=== PATIENT | female | born 1950 | race Caucasian/White ===

== ENCOUNTER 2020-08-04 00:49 | Outpatient (CLI) | payer MEDICARE, OTHER, SELFPAY ==
[2020-08-04 18:04] LABS: SARS-CoV-2 RNA PCR Negative
== END 2020-08-04 00:50 | disposition home or self-care (01) ==
LOC: ANHCOVIDDT 00:49
PROVIDERS: PCP Internal Medicine; Visit Provider Internal Medicine Gastroenterology
DX: Z01.812 Encounter for preprocedural laboratory examination (principal); Z20.828 Contact with and (suspected) exposure to other viral communicable diseases
CPT/HCPCS: 87635; C9803; U0003

== ENCOUNTER 2020-08-07 00:22 | Day surgery (SDC) | payer MEDICARE, OTHER, SELFPAY ==
[2020-08-03 15:53] VITALS: BMI 25.8
[2020-08-07 08:29] VITALS: BP 145/81; PULSE 79; RESP 14; TEMP 36; O2SAT 97; BMI 29.0
[2020-08-07 08:31] LABS: Glucose Point of Care 102 (65-105)
[2020-08-07] MEDS: LACTATED RINGERS 1,000 ML 150 ML IV CONT (08:32)
--- NOTE | 2020-08-07 08:57 | WPDANESEPPF ---
Anes - Initial Pre Proc Eval Procedure: Operation Date: 08/07/20 09:30 Proposed Procedures p Screening Colonoscopy - Aung Weldon MD Date/Time: 08/07/20 08:57 Surgeon: Aung Weldon MD Pre Op Diagnosis: Hx Colon Polyps Patient Data Age: 70 Gender: F Height: 5 ft 2 in Weight: 72.1 kg Last Vital Signs Temp 96.8 F L 08/07/20 08:29 Pulse 79 08/07/20 08:29 Resp 14 08/07/20 08:29 BP 145/81 H 08/07/20 08:29 Pulse Ox 97 08/07/20 08:29 Allergies Allergy/AdvReac Type Severity Reaction Status Date / Time fentanyl Allergy Severe Swelling Verified 08/07/20 08:19 of Lip/Tongue/Throat Sulfa (Sulfonamide Allergy Severe Hives Verified 08/07/20 08:19 Antibiotics) sulfamethizole Allergy Severe Hives Verified 08/07/20 08:19 trimethoprim Allergy Severe Hives Verified 08/07/20 08:19 adhesive Allergy Intermediate Rash Verified 08/07/20 08:19 morphine Allergy Unknown Rash Verified 08/07/20 08:19 Home Medications Medication Instructions Recorded Confirmed Type aspirin [Adult Low Dose Aspirin] 81 mg PO DAILY 08/03/20 08/07/20 History atorvastatin 20 mg PO DAILY 08/03/20 08/07/20 History calcium polycarbophil [FiberCon] 625 mg PO BID 08/03/20 08/07/20 History citalopram 20 mg PO DAILY 08/03/20 08/07/20 History donepezil 10 mg PO DAILY 08/03/20 08/07/20 History estradiol 0.5 mg PO DAILY 08/03/20 08/07/20 History lisinopril 10 mg PO DAILY 08/03/20 08/07/20 History magnesium 250 mg PO DAILY 08/03/20 08/07/20 History metformin 500 mg PO DAILY 08/03/20 08/07/20 History aabijovibufq-itx-loqf-FA-vit K 1 tablet PO DAILY 08/03/20 08/07/20 History [Adults Multivitamin] omega 6-qda-lfx-fish oil [Fish Oil] 1 cap PO BID 08/03/20 08/07/20 History trazodone 50 mg PO HS 08/03/20 08/07/20 History vitamin B complex [Super B Complex] 1 cap PO DAILY 08/03/20 08/07/20 History Laboratory Tests 08/07/20 08:27 POC Capillary Glucose 102 mg/dl mg/dl (65-105) Patient hx anesthesia problems: none Family hx anesthesia problems: none PMFSH Past Medical History Medical History (Updated 08/07/20 @ 08:55 by Toni Long MD) Arthritis Dementia Diabetes Hyperlipidemia Hypertension Family History Family History (Updated 09/17/15 @ 13:01 by DOCTOR UNKNOWN) Father Family history of Alzheimer's disease Mother Family history of coronary artery disease Other Carcinoma of colon Family history of obesity Social History Social History Smoking packs per day: 1 Smoking cigarettes per day: 20.0 Years smoked: 16 Smoking pack-years: 16.00 Smoking status: Former smoker Tobacco type: cigarettes Second hand tobacco smoke exposure: No Smoking end date: 10/12/89 Alcohol intake: current Drinks per week: 3 Alcohol use details: WINE Substance use: never Substance use type: does not use Living arrangements: with family Spiritual care concerns: No Anes - Eval Final PreProcedure Day of Procedure 08/07/20 08:57 Patient weight: normal Heart: regular rate and rhythm Lungs: clear to auscultation Airway: Mallampati scale class II Neurological: alert and oriented Last oral intake: >/= 8 hours ASA classification: III Emergent: no Anesthetic plan: proceed Anesthesia type and monitoring: general GIVS and standard monitoring Informed Consent: The patient's anesthetic plan and its attendant risks and benefits were discussed with the patient/family/POA. Questions were solicited and answers provided to the satisfaction of the patient/family/POA.
--- NOTE | 2020-08-07 09:24 | PM.HPGS ---
History of Present Illness History of Present Illness Consent: Risks, benefits, and alternatives have been discussed and questions answered. Patient agrees to proceed with procedure. Chief complaint: Hx Colon Polyps Narrative: Lynda Valdez is a 70 year old female With a history of colon polyps here for colon cancer screening Review of Systems Review of Systems: All systems reviewed & are unremarkable except as noted in HPI and below PMFSH Past Medical History Medical History Arthritis Dementia Diabetes Hyperlipidemia Hypertension Family History Family History (Updated 09/17/15 @ 13:01 by DOCTOR UNKNOWN) Father Family history of Alzheimer's disease Mother Family history of coronary artery disease Other Carcinoma of colon Family history of obesity Social History Social History Smoking packs per day: 1 Smoking cigarettes per day: 20.0 Years smoked: 16 Smoking pack-years: 16.00 Smoking status: Former smoker Tobacco type: cigarettes Second hand tobacco smoke exposure: No Smoking end date: 10/12/89 Alcohol intake: current Drinks per week: 3 Alcohol use details: WINE Substance use: never Substance use type: does not use Living arrangements: with family Spiritual care concerns: No Meds Home Medications and Allergies Home Medications Medication Instructions Recorded Confirmed Type aspirin [Adult Low Dose Aspirin] 81 mg PO DAILY 08/03/20 08/07/20 History atorvastatin 20 mg PO DAILY 08/03/20 08/07/20 History calcium polycarbophil [FiberCon] 625 mg PO BID 08/03/20 08/07/20 History citalopram 20 mg PO DAILY 08/03/20 08/07/20 History donepezil 10 mg PO DAILY 08/03/20 08/07/20 History estradiol 0.5 mg PO DAILY 08/03/20 08/07/20 History lisinopril 10 mg PO DAILY 08/03/20 08/07/20 History magnesium 250 mg PO DAILY 08/03/20 08/07/20 History metformin 500 mg PO DAILY 08/03/20 08/07/20 History snvqxkuqpkat-qri-tzal-FA-vit K 1 tablet PO DAILY 08/03/20 08/07/20 History [Adults Multivitamin] omega 5-fvj-ipq-fish oil [Fish Oil] 1 cap PO BID 08/03/20 08/07/20 History trazodone 50 mg PO HS 08/03/20 08/07/20 History vitamin B complex [Super B Complex] 1 cap PO DAILY 08/03/20 08/07/20 History Allergies Allergy/AdvReac Type Severity Reaction Status Date / Time fentanyl Allergy Severe Swelling Verified 08/07/20 08:19 of Lip/Tongue/Throat Sulfa (Sulfonamide Allergy Severe Hives Verified 08/07/20 08:19 Antibiotics) sulfamethizole Allergy Severe Hives Verified 08/07/20 08:19 trimethoprim Allergy Severe Hives Verified 08/07/20 08:19 adhesive Allergy Intermediate Rash Verified 08/07/20 08:19 morphine Allergy Unknown Rash Verified 08/07/20 08:19 Vital Signs Vital Signs - 24 hr 08/07/20 08:29 Temperature 36.0 C L Pulse Rate 79 Respiratory Rate 14 Blood Pressure 145/81 H Pulse Oximetry 97 Exam Resp: Auscultation: clear to auscultation bilaterally Cardio: Rate: regular rate Rhythm: regular rhythm GI: GI Palp: Yes Soft to palpation and No Tenderness to palpation present (GI) Assessment and Plan Assessment and plan (1) Colon cancer screening: Code(s): Z12.11 - Encounter for screening for malignant neoplasm of colon Status: Acute Assessment and Plan: Colonoscopy with possible biopsy or polypectomy or cautery or injection of substances.
[2020-08-07 09:54] VITALS: BP 125/68; PULSE 64; RESP 21; O2SAT 99
[2020-08-07 10:04] VITALS: BP 131/67; PULSE 60; RESP 21; O2SAT 99
[2020-08-07 10:14] VITALS: BP 125/102; PULSE 67; RESP 20; O2SAT 100
== END 2020-08-07 10:35 | disposition home or self-care (01) ==
PROVIDERS: PCP Internal Medicine; Visit Provider Internal Medicine Gastroenterology
PROC: 0DJD8ZZ Inspection of Lower Intestinal Tract, Via Natural or Artificial Opening Endoscopic (ICD-10-PCS; CPT 45378; principal; 2020-08-07 09:30)
DX: Z12.11 Encounter for screening for malignant neoplasm of colon (principal); Z86.010 Personal history of colon polyps; I10 Essential (primary) hypertension; E78.5 Hyperlipidemia, unspecified; E11.9 Type 2 diabetes mellitus without complications; F03.90 Unspecified dementia, unspecified severity, without behavioral disturbance, psychotic disturbance, mood disturbance, and anxiety; Z79.84 Long term (current) use of oral hypoglycemic drugs; Z79.82 Long term (current) use of aspirin; Z87.891 Personal history of nicotine dependence
CPT/HCPCS: G0105; J2704; J7120

== ENCOUNTER 2020-11-15 09:46 | Outpatient (CLI) | payer MEDICARE, SELFPAY ==
--- NOTE | ~2020-11-15 | MM_ITS ---
EXAMINATION: MM screening samara BI w julio HISTORY: Screening mammogram TECHNIQUE: Craniocaudal and mediolateral oblique 3-D tomosynthesis images were obtained and synthetic 2-D images were generated. CAD analysis was submitted and interpreted. COMPARISON: 11/01/2019, 09/29/2019, 09/23/2017 BREAST PARENCHYMAL COMPOSITION: There are scattered areas of fibroglandular density. FINDINGS: Scattered benign-appearing calcifications are present. There is no evidence of suspicious m ass, calcification, or architectural distortion to suggest malignancy in either breast. There has bee n no suspicious interval change. IMPRESSION: 1. No mammographic evidence of malignancy. 2. Recommend routine screening mammography in one year. BI-RADS Category 2: Benign finding(s). Reviewed, dictated and finalized at location A. ERCIAL [employer] OFFICER
== END 2020-11-15 09:47 | disposition home or self-care (01) ==
PROVIDERS: PCP Internal Medicine; Visit Provider Obstetrics & Gynecology Gynecology
DX: Z12.31 Encounter for screening mammogram for malignant neoplasm of breast (principal)
CPT/HCPCS: 77063; 77067

== ENCOUNTER 2020-12-05 08:40 | Outpatient (CLI) | payer MEDICARE, SELFPAY ==
--- NOTE | 2020-12-05 12:00 | NEURO_ITS ---
Impression: # Complains of hand numbness. History of carpal tunnel release on the left side. # Right moderate Carpal Tunnel Syndrome. # No ulnar neuropathy. # Normal needle/EMG exam except right APB mildly neurogenic. Nerve Conduction Studies Anti Sensory Summary Table Stim Site NR Peak (ms) P-T Amp (?V) Site1 Site2 Delta-P (ms) Dist (cm) Colin (m/s) Left Median Anti Sensory (2-3nd Digit) Wrist 3.1 57.3 Wrist 2-3nd Digit 3.1 14.0 45 Wrist 3.4 49.5 Wrist 2-3nd Digit 3.1 14.0 45 Right Median Anti Sensory (2-3nd Digit) Wrist 6.6 19.9 Wrist 2-3nd Digit 6.6 14.0 21 Wrist 5.2 9.4 Wrist 2-3nd Digit 6.6 14.0 21 Left Radial Anti Sensory (Base 1st Digit) Wrist 2.2 21.8 Wrist Base 1st Digit 2.2 0.0 Right Radial Anti Sensory (Base 1st Digit) Wrist 2.6 15.0 Wrist Base 1st Digit 2.6 0.0 Left Ulnar Anti Sensory (5th Digit) Wrist 2.8 33.7 Wrist 5th Digit 2.8 14.0 50 Right Ulnar Anti Sensory (5th Digit) Wrist 2.4 47.8 Wrist 5th Digit 2.4 14.0 58 Motor Summary Table Stim Site NR Onset (ms) O-P Amp (mV) Site1 Site2 Delta-0 (ms) Dist (cm) Colin (m/s) Left Median Motor (Abd Poll Brev) Wrist 3.3 2.4 Elbow Wrist 5.1 29.0 57 Elbow 8.4 1.1 Right Median Motor (Abd Poll Brev) Wrist 4.8 1.3 Elbow Wrist 4.2 24.0 57 Elbow 9.0 0.8 Left Ulnar Motor (Abd Dig Minimi) Wrist 2.8 7.2 A Elbow Wrist 4.9 28.0 57 A Elbow 7.7 5.3 Right Ulnar Motor (Abd Dig Minimi) Wrist 2.5 5.5 A Elbow Wrist 4.6 27.0 59 A Elbow 7.1 4.7 F Wave Studies NR F-Lat (ms) L-R F-Lat (ms) Left Median (Mrkrs) (Abd Poll Brev) 28.77 1.17 Right Median (Mrkrs) (Abd Poll Brev) 29.94 1.17 Left Ulnar (Mrkrs) (Abd Dig Min) 27.13 1.47 Right Ulnar (Mrkrs) (Abd Dig Min) 28.59 1.47 EMG Side Muscle Nerve Root Ins Act Fibs Amp Dur Recrt Comment Right 1stDorInt Ulnar C8-T1 Nml Nml Nml Nml Nml Right Ext Indicis Radial (Post Int) C7-8 Nml Nml Nml Nml Nml Right Ext Digitorum Radial (Post Int) C7-8 Nml Nml Nml Nml Nml Right BrachioRad Radial C5-6 Nml Nml Nml Nml Nml Right PronatorTeres Median C6-7 Nml Nml Nml Nml Nml Right Abd Poll Brev Median C8-T1 Nml Nml Nml >12ms Reduced Left 1stDorInt Ulnar C8-T1 Nml Nml Nml Nml Nml Left Ext Indicis Radial (Post Int) C7-8 Nml Nml Nml Nml Nml Left Ext Digitorum Radial (Post Int) C7-8 Nml Nml Nml Nml Nml Left BrachioRad Radial C5-6 Nml Nml Nml Nml Nml Left PronatorTeres Median C6-7 Nml Nml Nml Nml Nml Left Abd Poll Brev Median C8-T1 Nml Nml Nml Nml Nml Right ABD Dig Min Ulnar C8-T1 Nml Nml Nml Nml Nml Left ABD Dig Min Ulnar C8-T1 Nml Nml Nml Nml Nml MTDD
== END 2020-12-05 08:41 | disposition home or self-care (01) ==
PROVIDERS: PCP Internal Medicine; Visit Provider Internal Medicine
DX: G62.9 Polyneuropathy, unspecified (principal); G56.01 Carpal tunnel syndrome, right upper limb
CPT/HCPCS: 95886; 95911

== ENCOUNTER 2021-02-12 11:00 | Outpatient (RCR) | payer MEDICARE, SELFPAY ==
--- NOTE | 2020-12-21 15:47 | OTOPEVAL ---
OCCUPATIONAL THERAPY INITIAL EVALUATION REPORT 12/21/2020 Thank you for referring Lynda Valdez to [facility].? The patient is scheduled to be seen for therapy? 1x/week for 6 weeks. Please review, sign, date and return this plan of care VALERI. I agree with and certify that the following plan of care is medically necessary. Referring Physician Date Referring Provider: Torrey Whiteside, *OT Outpatient Evaluation Start: 12/21/20 14:38 Therapy Assessment Status Assessment Status Assessment Status Evaluation Outpatient Past Medical History Neurological History Hx Dementia Yes Cardiovascular History Hx Hypercholesterolemia Yes Hx Hypertension Yes Respiratory History Hx Respiratory Disorders No Significant History Gastrointestinal History Hx Gastroesophageal Reflux Disease Yes: HISTORY Hx Polyps Yes Genitourinary History Hx Genitourinary Disorders No Significant History Musculoskeletal History Hx Arthritis Yes Hx Joint Replacement Yes: L-HIP R-HIP BEFORE 2013, Hx Spinal Surgery Yes: 2013 CERVICAL LAMINECTOMY Hematological History Hx Hematological Disorders No Significant History Endocrine History Hx Diabetes Yes HEENT History Hx Dental Problems Yes: UPPER DENTURES Integumentary History Hx Shingles Yes Reproductive History Hx Post Menopausal Yes Psychosocial History Hx Psychiatric Disorders No Significant History Pain History History of Any Previous or Ongoing No Significant History Instance of Pain Anesthesia History Hx Anesthesia Reactions No Significant History Other History Hx Implanted Device Yes: BILATERAL HIPS Evaluation Information Problem Diagnosis Right carpal tunnel syndrome, bilateral hand paresthesias Additional Evaluation Detail 12/05/20: EMG (+) right CTS. Subjective Information Patient reports feeling Query Text:As Reported By Patient/ needles in her fingertips of Family both hands all the time . She has had carpal tunnel release on the left in 2017, but she reports no change in her symptoms. She has had a history of cervical surgeries. Lynda and her report that imaging shows no nerve compression in the cervical spine. Prior Level of Function Activity Level (Last 3 Months) Occupation Retired Hand Dominance Right Activity of Daily Living Ability Independent Pain Assessment Timing of Pain Assessment Timing of Pain Assessment
--- NOTE | 2021-01-25 12:28 | OTOPEVAL ---
OCCUPATIONAL THERAPY RE-EVALUATION REPORT 01/25/21 Thank you for referring Lynda Valdez to [facility]. ? The patient is scheduled to be seen for continued occupational therapy? 1x/week for 4 additional weeks. Please review, sign, date and return this plan of care VALERI. I agree with and certify that the following plan of care is medically necessary. Referring Physician Date Referring Provider: Torrey Whiteside, *OT Outpatient Evaluation Start: 12/21/20 14:38 Evaluation Information Problem Diagnosis Right carpal tunnel syndrome, bilateral hand paresthesias Additional Evaluation Detail 12/05/20: EMG (+) right CTS Patient began wearing bilateral wrist cock up splints 12/28/20 and today is 4 weeks total of wear time. She has been completing median nerve glides/stretching and using heat/ice at home. Subjective Information Patient reports the numbness Query Text:As Reported By Patient/ is almost gone and that she Family no longer has needles in her fingertips all the time. She has been very compliant with splint wearing. States she continues to be guarded when it comes to picking up cups and mugs. Pain Assessment Timing of Pain Assessment Timing of Pain Assessment Re-assessment Self Report Self Report Pain Level 0 Pain Score Pain Score 0: Self Report Hand Insurance Rater/Pinch Strength Assessment Hand Left Insurance Rater Strength (lbs) 54.33 Hand Insurance Rater/Pinch Strength Comments Improved from 50.66 lbs. Right Insurance Rater Strength (lbs) 49 Hand Insurance Rater/Pinch Strength Comments Improved from 46.33 lbs. Sensation Assessment Location Left [place] Median Diminished, Light Touch 2 Point Discrimination Static Fair (6-10mm) 2 Point Discrimination Comments Stereognosis is intact bilaterally. Patient continues to measure within the 6-10 mm range. Right [place] Median Diminished, Light Touch 2 Point Discrimination Static Fair (6-10mm) 2 Point Discrimination Comments Patient continues to measure within the 6-10 mm range. OT Clinical Summary OT Clinical Summary Patient presents today for re- evaluation after wearing bilateral wrist cock up splints x4 weeks. Sensory testing shows no improvements
--- NOTE | 2021-02-12 11:47 | OTOPEVAL ---
OCCUPATIONAL THERAPY RE-EVALUATION AND D/C NOTE 02/12/21 Patient presents today for re-evaluation after 8 weeks of therapy for bilateral hand paresthesias. Subjectively, the patient reports reduced numbness and tingling in bilateral hands. Objectively, the the monofilament test has remained unchanged and the 2-pt discrimination test improved, but she continues to test in the decreased sensation range. SWMF test shows patient testing in the 3.61 range (diminished light touch). Static 2-pt discrimination testing in the 6-10 mm range. Educated the patient on these test results and that she should return to night splint wearing, nerve glides, and use of heat/ice. She and her verbalize good understanding. Discharging from OT with patient independent with all materials. Thank you for referring Lynda Valdez to [facility].?Please review, sign, date and return this plan of care VALERI. I agree with and certify that the following plan of care is medically necessary. Referring Physician Date Referring Provider: Torrey Whiteside, *OT Outpatient Re-Evaluation Start: 12/21/20 14:38 Evaluation Information Problem Diagnosis Right carpal tunnel syndrome, bilateral hand paresthesias Additional Evaluation Detail 12/05/20: EMG (+) right CTS Patient began wearing bilateral wrist cock up splints 12/28/20 and today is 6 weeks total of wear time. She has been completing median nerve glides/stretching and using heat/ice at home. Subjective Information Patient reports the numbness Query Text:As Reported By Patient/ is almost gone and that she Family no longer has needles in her fingertips all the time. She has been very compliant with splint wearing. Pain Assessment Timing of Pain Assessment Timing of Pain Assessment Re-assessment Self Report Self Report Pain Level 0 Pain Score Pain Score 0: Self Report Special Tests-Upper Extremity Wrist Special Tests Tinnel's Carpal Negative Left,Negative Right Sensation Assessment Location Left [place] Median Diminished, Light Touch 2 Point Discrimination Static Fair (6-10mm) 2 Point Discrimination Comments Stereognosis is intact bilaterally. Patient continues to measure within the 6-10 mm range. At the start of care, she was testing at 9-10 mm. Today she was testing at 7mm. Right [place] Median Diminished, Light Touch 2 Point Discrimination Static Fair (6-10mm) 2 Point Discrimination Comments Patient continues to measure within the 6-10 mm
== END 2021-02-13 14:44 | disposition home or self-care (01) ==
LOC: ANHOT 11:00
PROVIDERS: PCP Internal Medicine; Visit Provider Internal Medicine
DX: G56.01 Carpal tunnel syndrome, right upper limb (principal); R20.2 Paresthesia of skin
CPT/HCPCS: 97018; 97035; 97110; 97140; 97166; L3906

== ENCOUNTER 2021-04-03 20:53 | Emergency (ER) | payer MEDICARE, SELFPAY ==
--- NOTE | ~2021-04-03 | XR_ITS ---
EXAMINATION: XR ankle RT min 3V DATE: 04/03/2021 21:08 INDICATION: Right ankle injury and pain. TECHNIQUE: 4 views of right ankle were obtained. COMPARISON: None. FINDINGS: Bone alignment is normal. There is a nondisplaced comminuted fracture of base of fifth meta tarsal. There is diffuse osteopenia. There is mild midfoot osteoarthritis. There is an enthesophyte a t plantar aspect of calcaneal tuberosity. IMPRESSION: 1. Nondisplaced comminuted fracture of base of fifth metatarsal. Reviewed, dictated and finalized at location A.
[2021-04-03 20:55] VITALS: BP 111/68; PULSE 74; RESP 16; TEMP 36.8; O2SAT 97
--- NOTE | 2021-04-03 21:41 | ED.LOWEXIN ---
HPI - Extremity Injury (Lower) General Chief Complaint: Extremity Injury, Lower Stated Complaint: rt ankle injury Time Seen by Provider: 04/03/21 21:36 Source: patient Mode of arrival: wheelchair Limitations: no limitations History of Present Illness HPI Narrative: Patient is a 71-year-old female complaining of right ankle pain after she rolled it while stepping on a curb prior to arrival. Patient states that her pain is a 9 out of 10, aching, nonradiating. Patient denies any other pain or injuries. Related Data Home Medications Medication Instructions Recorded Confirmed Adults Multivitamin 1 tablet PO DAILY 08/03/20 08/07/20 aspirin 81 mg PO DAILY 08/03/20 08/07/20 atorvastatin 20 mg PO DAILY 08/03/20 08/07/20 calcium polycarbophil [FiberCon] 625 mg PO BID 08/03/20 08/07/20 citalopram 20 mg PO DAILY 08/03/20 08/07/20 donepezil 10 mg PO DAILY 08/03/20 08/07/20 estradiol 0.5 mg PO DAILY 08/03/20 08/07/20 lisinopril 10 mg PO DAILY 08/03/20 08/07/20 magnesium 250 mg PO DAILY 08/03/20 08/07/20 metformin 500 mg PO DAILY 08/03/20 08/07/20 omega 1-jkg-mda-fish oil [Fish Oil] 1 cap PO BID 08/03/20 08/07/20 trazodone 50 mg PO HS 08/03/20 08/07/20 vitamin B complex 1 cap PO DAILY 08/03/20 08/07/20 Allergies Allergy/AdvReac Type Severity Reaction Status Date / Time fentanyl Allergy Severe Swelling Verified 08/07/20 08:19 of Lip/Tongue/Throat Sulfa (Sulfonamide Allergy Severe Hives Verified 08/07/20 08:19 Antibiotics) sulfamethizole Allergy Severe Hives Verified 08/07/20 08:19 trimethoprim Allergy Severe Hives Verified 08/07/20 08:19 adhesive Allergy Intermediate Rash Verified 08/07/20 08:19 morphine Allergy Unknown Rash Verified 08/07/20 08:19 Review of Systems Review of Systems: All systems reviewed & are unremarkable except as noted in HPI and below PMFSH Past Medical History Medical History Arthritis Dementia Diabetes Hyperlipidemia Hypertension Family History Family History Father Family history of Alzheimer's disease Mother Family history of coronary artery disease Other Carcinoma of colon Family history of obesity Social History Social History Smoking packs per day: 1 Smoking cigarettes per day: 20.0 Years smoked: 16 Smoking pack-years: 16.00 Smoking status: Former smoker Tobacco type: cigarettes Second hand tobacco smoke exposure: No Smoking end date: 10/12/89 Alcohol intake: current Drinks per week: 3 Substance use: never Substance use type: does not use Spiritual care concerns: No Exam Const: General: healthy appearing, no acute distress and alert Nutritional Appearance: well nourished HENMT: Head: normal to inspection Eyes: Conjunctivae: conjunctivae normal Neck: Neck: normal visual inspection Back/Spine/Pelvis: Other: Negative for vertebral tenderness negative for tenderness on palpation Skin: General skin exam: normal color Extrem: Other: Negative for any deformity. Right ankle swelling. Limited range of motion of right ankle and foot due to pain. Pain on palpation of the right ankle and foot. Neurovascular is intact bilateral lower extremities Course Vital Signs Vital signs: Vital Signs Temperature 36.8 C 04/03/21 20:55 Pulse Rate 74 04/03/21 20:55 Respiratory Rate 16 04/03/21 20:55 Blood Pressure 111/68 04/03/21 20:55 Pulse Oximetry 97 04/03/21 20:55 Temperature 36.8 C 04/03/21 20:55 Pulse Rate 74 04/03/21 20:55 Respiratory Rate 16 04/03/21 20:55 Blood Pressure 111/68 04/03/21 20:55 Pulse Oximetry 97 04/03/21 20:55 MDM - Extremity Injury (Lower) Differential Diagnosis Differential diagnosis: Likely ankle sprain and strain, fracture of toe, ankle fracture and other (Dislocation) Imaging Data Attestation: I personally revi
[2021-04-03] MEDS: ACETAMINOPHEN 325 MG TABLET 650 MG PO (22:24)
[2021-04-03] MEDS: TETANUS,DIPHTHERIA,AC PERTUSSIS ADULT (0.5 ML) BOOSTRIX IM (22:24)
== END 2021-04-03 22:28 | disposition home or self-care (01) ==
PROVIDERS: Emergency Provider Emergency Medicine; PCP Internal Medicine
DX: S92.354A Nondisplaced fracture of fifth metatarsal bone, right foot, initial encounter for closed fracture (principal); E11.9 Type 2 diabetes mellitus without complications; I10 Essential (primary) hypertension; E78.5 Hyperlipidemia, unspecified; F03.90 Unspecified dementia, unspecified severity, without behavioral disturbance, psychotic disturbance, mood disturbance, and anxiety; Z23 Encounter for immunization; Z87.891 Personal history of nicotine dependence; X50.0XXA Overexertion from strenuous movement or load, initial encounter
CPT/HCPCS: 73610; 90471; 90715; 99283; A9270

== ENCOUNTER 2021-06-20 11:00 | Outpatient (RCR) | payer MEDICARE, SELFPAY ==
--- NOTE | 2021-05-22 10:52 | PTOPEVAL ---
PHYSICAL THERAPY EVALUATION AND PLAN OF CARE Thank you for referring Lynda Valdez to [facility].? The patient is scheduled to be seen for therapy? 2x/week for 4-6 weeks. Please review, sign, date and return this plan of care VALERI. I agree with and certify that the following plan of care is medically necessary. Referring Physician Date Attending Provider: Piero Owens MD Evaluation Outpatient Past Medical History Neurological History Hx Dementia Yes Cardiovascular History Hx Hypercholesterolemia Yes Hx Hypertension Yes Musculoskeletal History Hx Arthritis Yes Hx Joint Replacement Yes: L-HIP R-HIP BEFORE 2013, Hx Spinal Surgery Yes: 2013 CERVICAL LAMINECTOMY Endocrine History Hx Diabetes Yes HEENT History Hx Dental Problems Yes: UPPER DENTURES Integumentary History Hx Shingles Yes Reproductive History Hx Post Menopausal Yes Other History Hx Implanted Device Yes: BILATERAL HIPS Evaluation Information Problem Diagnosis right 5th metatarsal fracture Onset March 26, 2021 Additional Evaluation Detail drop foot present since 2016 Subjective Information Angie is supposed to wear an Query Text:As Reported By Patient/ AFO, but she descided not to Family wear it and she rolled her ankle and fractured the 5th metatarsal, which is now healed, but today she is here today for improving gait pattern. Pain Assessment Timing of Pain Assessment Timing of Pain Assessment Assessment Self Report Self Report Pain Level 0 Pain Score Pain Score 0: Self Report Lower Extremity Range of Motion General Lower Extremity Range of Motion Gross Lower Extremity Range of Motion grossly WNL, unable to perform Comments right AROM dorisflexion and eversion Lower Extremity Muscle Strength Testing Hip Strength Right Hip Flexion Strength 5 Normal Hip Extension Strength 4- Good - Hip Abduction Strength 4 Good Knee Strength Right Knee Flexion Strength 4 Good Knee Extension Strength 5 Normal Ankle Strength Right Ankle Dorsiflexion Strength 0 Zero Ankle Plantarflexion Strength 3+ Fair + Ankle Eversion Strength 1 Trace Ankle Inversion Strength 3- Fair - Toe Strength Comments no toe strength Muscle Length Testing Muscle Length Testing Joel Test Shortened Muscles Short (R) Iliopsoas,Short (R) Rectus Femoris Gait Assessment Gait Assessment Ambulation Assistive Devices None Weight Bearing Status -
--- NOTE | 2021-06-20 11:33 | PTOPEVAL ---
PHYSICAL THERAPY DISCHARGE NOTE Thank you for referring Lynda Valdez to [facility].? Please review, sign, date and return this plan of care VALERI. I agree with and certify that the following plan of care is medically necessary. Referring Physician Date Attending Provider: Piero Owens MD Discharge Diagnosis right 5th metatarsal fracture Onset March 26, 2021 Additional Evaluation Detail drop foot present since 2016 Subjective Information States she is doing really Query Text:As Reported By Patient/ well. Does not use the AFO at Family home and does not like wear the AFO out side of the home. Pain Assessment Timing of Pain Assessment Timing of Pain Assessment Assessment Self Report Self Report Pain Level 0 Pain Score Pain Score 0: Self Report Lower Extremity Muscle Strength Testing Hip Strength Right Hip Flexion Strength 5 Normal Hip Extension Strength 4+ Good + Hip Abduction Strength 5 Normal Knee Strength Right Knee Flexion Strength 5 Normal Knee Extension Strength 5 Normal Ankle Strength Right Ankle Dorsiflexion Strength 0 Zero Ankle Plantarflexion Strength 4- Good - Ankle Eversion Strength 1 Trace Ankle Inversion Strength 4- Good - Gait Assessment Gait Assessment Ambulation Assistive Devices None Weight Bearing Status - Left Full Weight Bearing Status - Right Full Ambulation Speed (feet/second) 2.1 General Exercise General Exercises Side Bilateral Exercise Location LE Exercise Type Active,Resistive Exercise Description reviewed HEP; instructed to Query Text:Record Sets, Reps, continue HEP for at least a Resistance, and Position month. Lisha are going to go out walking and using their tricycles to increase activity levels and cardio. PT Clinical Summary Angie is a 71 yo female presenting to outpatient physical therapy s/p right 5th metatarsal fx for gait re- training. She has a history of right drop foot from 2016 and does have an AFO to assist in gait. Angie is demonstrating nearly normal gait pattern considering her history of foot drop. Her strength has increased significantly and she is much more balanced.
== END 2021-06-20 17:43 | disposition home or self-care (01) ==
LOC: ANHPT 11:00
PROVIDERS: PCP Internal Medicine; Visit Provider Orthopaedic Surgery
DX: S92.354D Nondisplaced fracture of fifth metatarsal bone, right foot, subsequent encounter for fracture with routine healing (principal)
CPT/HCPCS: 97110; 97162

== ENCOUNTER 2021-11-30 10:51 | Outpatient (CLI) | payer MEDICARE, SELFPAY ==
--- NOTE | ~2021-11-30 | MM_ITS ---
EXAMINATION: MM screening samara BI w julio HISTORY: Screening mammogram TECHNIQUE: Craniocaudal and mediolateral oblique 3-D tomosynthesis images were obtained and synthetic 2-D images were generated. Bilateral rotated lateral cc views. CAD analysis was submitted and interp reted. COMPARISON: November 15, 2020, November 01, 2019, September 29, 2018 bilateral screening mammogram exami [place] BREAST PARENCHYMAL COMPOSITION: There are scattered areas of fibroglandular density. FINDINGS: Multiple scattered bilateral benign calcifications are again noted. There is no evidence of suspicious mass, calcification, or architectural distortion to suggest malignancy in either breast. There has been no suspicious interval change. IMPRESSION: 1. Benign calcifications. No mammographic evidence of malignancy. 2. Recommend routine screening mammography in one year. BI-RADS Category 2: Benign finding(s). Reviewed, dictated and finalized at location A. [employer]
== END 2021-11-30 10:52 | disposition home or self-care (01) ==
LOC: ANHIMG 10:53
PROVIDERS: PCP Internal Medicine; Visit Provider Obstetrics & Gynecology Gynecology
DX: Z12.31 Encounter for screening mammogram for malignant neoplasm of breast (principal)
CPT/HCPCS: 77063; 77067

== ENCOUNTER 2023-01-30 09:57 | Outpatient (CLI) | payer MEDICARE, SELFPAY ==
--- NOTE | ~2023-01-30 | DEXA_ITS ---
Bone Density Report Name: SHAKIRA RAYA Age: 73 Sex: Female Ethnicity: White Date of : 1950 Indication: postmenopausal; screening for osteoporosis; height loss; Referring Provider: RON THURMAN Study: Bone densitometry was performed. Exam Date: January 30, 2023 Accession number: [id number] Bone Density: Region BMD T-score Z-score Classification AP Spine(L1-L4) 1.503 4.1 6.5 Normal World Health Organization criteria for BMD impression classify patients as: Normal (T-score at or above -1.0), Osteopenia (T-score between -1.0 and -2.5), or Osteoporosis (T-score at or below -2.5). Previous Exams: Region Exam Age BMD T-score BMD Change BMD Change Date g/cm2 vs Baseline vs Previous AP Spine (L1-L4) 01/30/2023 73 1.503 4.1 0.143 (10.5%)# -0.020 (-1.3%) 08/09/2015 65 1.523 4.3 0.163 (12.0%)* 0.163 (12.0%)* 06/01/2012 62 1.360 2.8 *Denotes significance at 95% confidence level, LSC for AP Spine = 0.022 g/cm2 # Denotes dissimilar scan types or analysis methods Clinical Information Provided by Patient: Has used the following medications: Vitamin D, Calcium Patient maximum height was 62 Menopause Age: 48 No regular weight bearing exercise Drinks caffeinated beverages Onset of menses at age 12 Number of children 0 Impression: The patient has normal bone mass. No significant bone loss was observed. Discussion: LOW RISK OF FRACTURE; BONE DENSITY IS WELL ABOVE THE MINIMUM DESIRABLE LEVEL AND ABOVE AVERAGE FOR AGE AND SEX AT ALL SKELETAL SITES TESTED. This person's bone density is above expected limits for age and sex. This is rarely clinically significant, but should be pursued if there are significant musculoskeletal complaints. The patient should follow a healthful lifestyle (good nutrition with adequate calcium and vitamin D, and appropriate weight-bearing exercise). Follow-Up: Consider repeating this study in 5 years or sooner if there is some new clinical indication. Reported by: [facility] on 01/30/2023 10:35:00 AM. Reviewed, dictated and finalized at location AEb HORTON
--- NOTE | ~2023-01-30 | MM_ITS ---
EXAMINATION: MM screening samara BI w julio HISTORY: Screening mammogram TECHNIQUE: Craniocaudal and mediolateral oblique 3-D tomosynthesis images were obtained and synthetic 2-D images were generated. CAD analysis was submitted and interpreted. COMPARISON: 11/30/2021, 11/15/2020, 11/01/2019 BREAST PARENCHYMAL COMPOSITION: There are scattered areas of fibroglandular density. FINDINGS: Scattered benign-appearing calcifications are present. No suspicious mass, calcification, o r architectural distortion are identified in either breast to suggest malignancy. There has been no s uspicious interval change. IMPRESSION: 1. No mammographic evidence of malignancy. 2. Recommend routine screening mammography in one year. BI-RADS Category 2: Benign finding(s). Reviewed, dictated and finalized at location A.
== END 2023-01-30 09:58 | disposition home or self-care (01) ==
PROVIDERS: PCP Family Medicine; Visit Provider Obstetrics & Gynecology Gynecology
DX: Z12.31 Encounter for screening mammogram for malignant neoplasm of breast (principal); Z78.0 Asymptomatic menopausal state
CPT/HCPCS: 77063; 77067; 77080

== ENCOUNTER 2023-08-31 10:17 | Outpatient (CLI) | payer MEDICARE, SELFPAY ==
--- NOTE | ~2023-08-31 | MR_ITS ---
EXAMINATION: MR brain/brain stem wo con DATE: 08/31/2023 11:02 INDICATION: Memory loss. TECHNIQUE: Magnetic resonance imaging (MRI) of the brain and brainstem was performed without intraven ous contrast. COMPARISON: Brain MRI 12/04/2015 FINDINGS: There are scattered areas of nonspecific increased T2-weighted signal intensity in the cere bral white matter. There is no intracranial hemorrhage, acute infarction, or abnormal intracranial ma ss lesion. The lateral ventricles are enlarged for the size of the sulci. The orbits are normal. Ther e is a trace left mastoid effusion. The paranasal sinuses are clear. IMPRESSION: 1. Moderate nonspecific cerebral white matter disease, which likely represents chronic small vessel i schemic disease, worsened from 12/04/2015. 2. Worsened ventriculomegaly. Correlate clinically for normal pressure hydrocephalus. Reviewed, dictated and finalized at location E. [facility] [employer] IMPRESSION: 1. Moderate nonspecific cerebral white matter disease, which likely represents chronic small vessel ischemic disease, worsened from 12/04/2015. 2. Worsened ventriculomegaly. Correlate clinically for normal pressure hydrocep halus.
== END 2023-08-31 10:18 | disposition home or self-care (01) ==
PROVIDERS: PCP Family Medicine
DX: R41.3 Other amnesia (principal); R90.82 White matter disease, unspecified; G93.89 Other specified disorders of brain
CPT/HCPCS: 70551

== ENCOUNTER 2024-02-10 10:21 | Outpatient (CLI) | payer MEDICARE, SELFPAY ==
--- NOTE | ~2024-02-10 | MR_ITS ---
MRI of the cervical spine Clinical History: Cervical stenosis Technique: Axial T2-weighted and gradient images, and sagittal T1-weighted, T2-weighted, and STIR ethel ges were acquired. Findings: No acute fracture or dislocation identified. There is anterior fusion hardware with associa jamison severe artifact extending from C3 through C6. No suspicious bone marrow signal abnormality identi fied. At C2-C3, there is advanced degenerative disc narrowing. There is central disc protrusion versus extr usion superimposed upon mild disc bulge. This results in mild to moderate canal stenosis and mild coco tral cord compression. Bilateral neural foramina are probably preserved despite mild facet arthropath y bilaterally. At C3-C4, there is mild canal stenosis without tammy cord compression. There is probable bilateral ne ural foraminal narrowing with facet arthropathy. At C4-C5, there is mild canal stenosis without tammy cord compression. There is bilateral neural fora maryann narrowing with bilateral facet arthropathy. At C5-C6, there is canal stenosis without cord compression. There is bilateral neural foraminal narro wing with bilateral facet arthropathy. At C6-C7, there is moderate to advanced degenerative disc narrowing. There is mild disc bulge. No fra nk canal stenosis or cord compression. There is mild bilateral neural foraminal narrowing with mild b ilateral facet arthropathy. Questionable mild increased T2 cord signal from C3 through C6 on STIR images. Paravertebral soft tiss ues otherwise are unremarkable. Impression: Moderate to advanced degenerative spondylosis, as above. There is anterior fusion from C3 through C6. Cord compression is worst at C2-C3. Possible mild cord edema from C3 through C6. This could reflect chronic sequela of prior cord edin thompson/myomalacia changes, the cord is essentially normal in caliber overall. Reviewed, dictated and finalized at [facility]. Impression: Moderate to advanced degenerative spondylosis, as above. There is anterior fusi on from C3 through C6. Cord compression is worst at C2-C3. Possible mild cord edema from C3 through C6. This could reflect chronic sequela of prior cord compression/myomalacia changes, the cord is essentially normal i n caliber overall.
== END 2024-02-10 10:22 | disposition home or self-care (01) ==
LOC: ANHIMG 10:27
PROVIDERS: PCP Family Medicine; Visit Provider Nurse Practitioner Acute Care
DX: M48.02 Spinal stenosis, cervical region (principal); R26.9 Unspecified abnormalities of gait and mobility; M43.02 Spondylolysis, cervical region; Z98.1 Arthrodesis status
CPT/HCPCS: 72141

== ENCOUNTER 2024-03-28 13:55 | Outpatient (CLI) | payer MEDICARE, SELFPAY ==
--- NOTE | ~2024-03-28 | MM_ITS ---
EXAMINATION: MM screening samara BI w julio HISTORY: Screening TECHNIQUE: Craniocaudal and mediolateral oblique 3-D tomosynthesis images were obtained and synthetic 2-D images were generated. CAD analysis was submitted and interpreted. COMPARISON: Comparison to multiple prior studies sequentially, with oldest reviewed study dated 09/11. BREAST PARENCHYMAL COMPOSITION: Dense: The breasts are heterogeneously dense, which may obscure small masses FINDINGS: There is no evidence of suspicious mass, calcification, or architectural distortion to sugg est malignancy in either breast. There has been no suspicious interval change. IMPRESSION: 1. No mammographic evidence of malignancy. 2. Recommend routine screening mammography in one year. BI-RADS Category 1: Negative Reviewed, dictated and finalized at location B.
== END 2024-03-28 13:56 | disposition home or self-care (01) ==
LOC: ANHIMG 13:58
PROVIDERS: PCP Family Medicine; Visit Provider Nurse Practitioner Women's Health
DX: Z12.31 Encounter for screening mammogram for malignant neoplasm of breast (principal)
CPT/HCPCS: 77063; 77067

== ENCOUNTER 2024-09-27 13:00 | Outpatient (RCR) | payer MEDICARE, SELFPAY ==
--- NOTE | 2024-08-24 15:28 | OPREHPOC ---
Outpatient Therapy Plan of Care This is a Multidisciplinary Plan of Care that may contain components documented by all disciplines (PT, OT, and ST.) PT Problem 1 PT Problem #1 Knowledge Deficit PT Goal 1 Goal / Goal Update *indep with HEP Target Visit 10 PT Problem 2 PT Problem #2 Impaired Functional Mobility PT Goal 1 Goal / Goal Update improve mobility skills, to decrease risk for falls: 1* Tinetti balance/gait score of 26/28 2* 5 reps sit/stand time of 15 seconds, with out use of UE's 3* 2 minute walking test distance of 175' with wheeled walker 4* pt report NO falls 5* up/down 4 steps with 1 hand railing, modified indep Target Visit 10
--- NOTE | 2024-08-24 15:28 | PTOPEVAL1 ---
Assessment and note entered by Nohemy Marroquin, PT Evaluation Information Assessment Status Evaluation ICD-10 Condition Codes (PT) Repeated falls R29.6,Difficulty Walking R26.2,R26. 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 She is using a cane or wheeled walker for mobility. Her significant other, Sandi assists her with home tasks, driving, meals. Medical history includes dementia, diabetes, cervical surgery x2, bilateral THR, foot drop R. With the evaluation: she has decrease R and L LE strength, with R ankle no active motion; 5 reps sit/stand with 1 UE in 16 seconds; Tintetti balance/gait score of 16/28= high risk for falls; 2 minute walking test distance of 125' with wheeled walker. Skilled PT services are indicated to increase LE strength, gait and balance skills, to improve mobility and decrease risk for falls, with education for safety with mobility and HEP. Plan of Care Interventions Gait Training,Neuro Re-education,Patient/Caregiver Education,Therapeutic Activities,Therapeutic Exercise PT Services Indicated Yes Treatment Frequency and 2x/wk x 10 visits Duration These treatments will address the objective and functional deficits as defined above. The patient will be advanced safely and appropriately in order for the patient to progress towards his/her prior level of function. Additional exercises will be introduced and as well as a comprehensive home exercise program upon discharge, if needed, ?to ensure carryover of functional gains achieved in the clinic. This treatment plan has been reviewed and agreement upon by the patient.
--- NOTE | 2024-09-27 13:53 | PTOPDC ---
Assessment and note entered by Nohemy Marroquin, PT Assessment Status Discharge ICD-10 Condition Codes (PT) Repeated falls R29.6,Difficulty Walking R26.2, Abnormalities of gait and mobility R26.9,Weakness R53.1 Other ICD-10 Condition Codes ( R drop foot M21.371 PT) Onset April 2024 Subjective Information per pt and significant other Kourtney: balance is a little better; little stronger in legs, can stand up easier; have not had any falls at home; have the ankle brace, but not always wear it; have been doing the exercises some at home; Kourtney has to remind her. Reported Pain Level Pain Score 0: Self Report Additional Pain Score Comments have neuropathy in her hands and arms, from her neck issues Assessment PT Clinical Summary Angie has received 10 PT sessions. She has not had any falls since starting therapy. Compared to the initial evaluation: continues to use the wheeled walker for ambulation; now has a velcro ankle-shoelace brace for to decrease toe drag on R; 5 reps sit/stand time from 16 to 18 seconds, with use of 1 UE on chair; Tinetti balance score improved by 1 point; 2 minute walking test distance from 125' to 160' with wheeled walker; on 4 steps, requires use of 1 hand railing, modified indep; LE functional scale rating from 71 to 61% limitation in activity level education completed for HEP and safety with mobility. Her significant other, Kourtney, is helping her at home with HEP and encouraging mobility and activity. The goals were partially met. Discharge PT services. Continue with the HEP and walking/activity as tolerated. Plan of Care PT Services Indicated No
== END 2024-09-27 15:12 | disposition home or self-care (01) ==
LOC: ANHPT 13:00
PROVIDERS: PCP Physician Assistant Medical; Visit Provider Physician Assistant Medical
DX: M21.371 Foot drop, right foot (principal); R29.6 Repeated falls
CPT/HCPCS: 97110; 97116; 97161; 97530

== ENCOUNTER 2025-04-13 09:27 | Outpatient (CLI) | payer MEDICARE, SELFPAY ==
--- NOTE | ~2025-04-13 | MM_ITS ---
EXAMINATION: MM screening samara BI w julio HISTORY: Screening mammogram TECHNIQUE: Craniocaudal and mediolateral oblique 3-D tomosynthesis images were obtained and synthetic 2-D images were generated. CAD analysis was submitted and interpreted. COMPARISON: 03/28/2024, 01/30/2023, 11/30/2021 BREAST PARENCHYMAL COMPOSITION:Not Dense. There are scattered areas of fibroglandular density. FINDINGS: No suspicious mass, calcification, or architectural distortion are identified in either halima ast to suggest malignancy. There has been no suspicious interval change. IMPRESSION: No mammographic evidence of malignancy. Recommend routine screening mammography in one year. BI-RADS Category 1: Negative Reviewed, dictated and finalized at location .
--- OUTSIDE RECORDS SUMMARY | 2025-04-13 09:33 | XMS_ITS | Clinical Summary ---
Author Organization [facility] Address [address] [place] [address] Care Team Providers Care Doll Eye Setter Name Role Phone Sajan Velasquez MD Primary Care Provider [phone] Allergies Active Allergy Reactions Criticality Noted Date Comments Adhesive Tape-Silicones Rash Medium 06/21/2014 Fentanyl Anaphylaxis,Angioedema High 06/26/2016 Morphine Anaphylaxis,Rash High 02/16/2019 Sulfamethoxazole-Trimethoprim Anaphylaxis High 02/16 Medications atorvastatin (LIPITOR) 20 mg tabletIndicatio ns:hyperlipidem ia Take 1 tablet (20 mg total) by mouth nightly Active donepezil (ARICEPT) 10 mg tabletIndicatio ns:Mild to Moderate Alzheimer's Type Dementia Take 1 tablet (10 mg total) by mouth nightly Active lisinopril (PRINIVIL,ZESTR IL) 10 mg tabletIndicatio ns:hypertension Take 1 tablet (10 mg total) by mouth every morning Active metFORMIN (GLUCOPHAGE) 500 mg tabletIndicatio ns:type 2 diabetes mellitus Take 1 tablet (500 mg total) by mouth every morning Active traZODone (DESYREL) 50 mg tabletIndicatio ns:insomnia associated with depression Take 1 tablet (50 mg total) by mouth nightly Active aspirin 81 mg enteric coated tabletIndicatio ns:prevention of thrombosis Take 1 tablet (81 mg total) by mouth nightly Active vitamin b complex tabletIndicatio ns:Vitamin Deficiency Prevention Take 1 tablet by mouth every morning Active cinnamon bark 500 mg capsule Take 1 capsule (500 mg total) by mouth nightly Active FIBER-CAPS, PSYLLIUM HUSK, ORAL Take 1 tablet by mouth 2 (two) times a day Active omega-3 fatty acids-fish oil (FISH OIL) 360-1,200 mg capsuleIndicati ons:hypertrigly ceridemia Take 1,200 mg by mouth 2 (two) times a day Active magnesium oxide (MAG-OX) 250 mg (150.8 mg elemental) tabletIndicatio ns:hypomagnesem ia Take 1 tablet (250 mg total) by mouth nightly Active djjrxiqy-box-pt ti-BL-tfwqrq (CENTRUM SILVER WOMEN) 8 mg iron-400 mcg-300 mcg tabletIndicatio ns:supplement Take 1 tablet by mouth every morning Active citalopram (CeleXA) 20 mg tablet Take 1 tablet by mouth once daily 90 tablet 10/08/2020 Active Active Problems Problem Noted Date Diagnosed Date Numbness and tingling of upper extremity 019 Right shoulder pain 07/14/2019 Dementia without behavioral disturbance 02/29/20 19 Obstructive sleep apnea syndrome in adult 2016 Memory impairment 08/07/2017 Carpal tunnel syndrome 06/29/2017 Encounter for preventive health examination 10/12 Foot-drop 06/26/2016 Injury of sciatic nerve 06/26/2016 Synovial cyst 12/01/2013 Hypercholesterolemia 10/20/2013 Hypertension 10/20/2013 Osteoarthritis of cervical spine without myelopa thy 10/20/2013 Cervical radiculopathy 10/20/2013 Type 2 diabetes mellitus 10/20/2013 Chronic pain 08/31/2013 Degeneration of intervertebral disc of cervical region 08/31/2013 Herniation of intervertebral disc of cervical re gion 08/31/2013 Diffuse cervicobrachial syndrome 08/31/2013 Spinal stenosis of cervical region 08/31/2013 Cervical pain (neck) 08/23/2013 Nerve root disorder 08/23/2013 Cervical pain (neck) 08/09/2013 Arthralgia of shoulder 08/09/2013 Encounters Date Type Department Care Team Description 03/13/2025 1:00 PM CDT Office Visit [facility] [address] [place] [address] [place] [address] Sariah Ritchie PA Dementia without behavioral disturbance (HCC) from Last 3 Months Immunizations Immunization Administration Dates Next Due Influenza, Quadrivalent, Spl it, Preservative Free, Intramuscular 07/10/2014 Influenza, Trivalent, High D ose, Split, Preservative Free, Intramuscular 07/19/2018 Influenza, Trivalent, Preservative Free, Intramu scular 07/12/2013 Influenza, Unspecified 07/14/2013,07/21/2012 Pneumococcal Conjugate PCV 13 03/10/2018 Pneumococcal, Unspecified 02/05/2009 ZOSTER LIVE 08/17/2018,02/05/2009 ZOSTER Recombinant 08/17/2018,03/10/2018 Surgical History Surgery Date Site/Laterality Comments HIP SURGERY 10/12/2003 - 10/11/2004 Left Right 2015 RI ARTHRD PST/PSTLAT TQ 1NTRSPC CRV BELW C2 SEGMENT Arthrodesis Below C2 By Posterior Approach - (Added by TW Conv) HIP SURGERY Hip Repair - (Added by TW Conv) CERVICAL LAMINECTOMY 10/12/2013 - 10/11/2014 CARPAL TUNNEL RELEASE 10/12/2016 - 10/11/2017 Medical History Medical History Date Comments Personal history of other en docrine, nutritional and metabolic disease History of hyperchol esterolemia - (Added by TW Conv) Personal history of other di seases of the circulatory system History of hypertension - (A dded by TW Conv) Personal history of other en docrine, nutritional and metabolic disease History of diabetes mellitus - (Added by TW Conv) Personal history of other en docrine, nutritional and metabolic disease History of hyperchol esterolemia - (Added by TW Conv) Dyslipidemia Depression Insomnia Prediabetes Foot drop, right Cognitive decline Hypertension Hyperlipidemia Type 2 diabetes mellitus (HCC) Cervical disc disease Cervical stenosis (uterine cervix) Dementia (HCC) Family History Medical History Relation Name Comments Diabetes Brother Heart disease Brother Hypertension Brother Alzheimer's disease Father Family h istory of Alzheimer's disease - onset in mid 60s (Added by TW Conv) Diabetes Father Diabetes Mellit us - (Added by TW Conv) Heart disease Father Heart Disease - (Added by TW Conv) Hypertension Father Diabetes Mother Diabetes Mellit us - (Added by TW Conv)/Family history of diabetes mellitus - (Added by TW Conv) Heart disease Mother Heart Disease - (Added by TW Conv) Alzheimer's disease Sister Family h istory of Alzheimer's disease - onset in mid 60s (Added by TW Conv) Anesthesia problems Neg Hx Relation Name Status Comments Brother Father Mother Sister Social History Tobacco Use Types Packs/Day Years Used Date Smoking Tobacco: Former Cigarettes 1 16 1 976 - 1992 Smokeless Tobacco: Never Tobacco Cessation:Counseling Given: Not Answered Alcohol Use Standard Drinks/Week Comments Yes 3 (1 standard drink = 0.6 oz pur e alcohol) AUDIT-C Answer Date Recorded Q1: How often do you have a drink containing alc ohol? Monthly or less 01/19/2024 Q2: How many drinks containi ng alcohol do you have on a typical day when you are drinking? 1 or 2 01/19/2024 Q3: How often do you have si x or more drinks on one occasion? Never 01/19/2024 Comments No Sex and Gender Information Value Date Recorded Sex Assigned at Not on file Legal Sex Female 2:45 AM MINE ANALYST Gender Identity Female 02/23/2020 6:25 PM CDT Sexual Orientation Not on file Obstetrics History Last Filed Vital Signs Vital Sign Reading Time Taken Comments Blood Pressure 124/65 03/13/2025 12:34 PM CDT Pulse 58 03/13/2025 12:34 PM CDT Temperature 37 C (98.6 F) 08/12/2023 12:40 PM CDT Respiratory Rate 18 10/19/2019 9:05 AM MINE ANALYST Oxygen Saturation 98% 08/12/2023 12:40 PM CDT Inhaled Oxygen Concentration - - Weight 71.2 kg (157 lb) 03/13/2025 12:34 PM CDT Height 157.5 cm (5' 2) 03/13/2025 12:34 PM CDT Body Mass Index 28.72 03/13/2025 12:34 PM CDT Plan of Treatment Health Maintenance Due Date Last Done Comments Albumin Creatinine Ratio, Urine 1948 Depression Screening 1948 Fall Risk Assessment 1948 Hemoglobin A1C 1948 Hepatitis C Screening 1948 Osteoporosis Screening-Bone Density Scan 1948 Dilated Eye Exam 1948 Foot Exam 1948 DTaP/Tdap/Td Vaccine (1 - Tdap) 01/01/1959 Hepatitis B Screening 01/01/1966 Well Visit 65+ 01/01/2013 Lipid Panel 10/22/2016 10/22/2015 Pneumococcal vaccine 65+ (2 of 2 - PPSV23) 05/05/2018 03/10/2018, 02/05/2009 eGFR 10/03/2020 10/03/2019 Influenza Vaccine (Season Ended) 2025 07/19/2018, 07/10/2014, 07/14/2013, Additional history exists Zoster Vaccine Completed 08/17/2018, 03/2018, 03/10/2018, Additional history exists Medical Devices Implanted Type Area Supervisor Finish End Device Identifier Shelf Expiration Date Model / Serial / Lot [facility] [id number] Mambo Settle Spinal Cervical Screw Bone Silver - [id number] Implanted:Qty: 2 on 10/18/2019 by Antonino Webb MD at [facility] Screw N/A: Spine Cervical [facility] [id number] / / [facility] Cs 1831-15 Screw Mambo Bone Self-Drilling 3.5mm Length 15mm - [id number] Implanted:Qty: 6 on 10/18/2019 by Antonino Webb MD at [facility] Screw N/A: Spine Cervical [facility] CS 1831-15 / / Bilateral Total Hip Arthroplasty Hip Cervical Spine-Laminecto my Hardware Spine Cervical Abyrx Os-201 Hemasorb Os-Spa [place] Wax 2gm Bone Sterile - [id number] Implanted:Qty: 1 on 10/18/2019 by Antonino Wbeb MD at [facility] N/A: Spine Cervical Abyrx 05/11/2022 OS-201 / / [id number] 700-025 I Factor Allograft Putty Syringe Graft 2.5cc Bone - [id number] Implanted:Qty: 1 on 10/18/2019 by Antonino Webb MD at [facility] N/A: Spine Cervical [employer] 06/11/2022 700-025 / / [id number] [employer] [id number] Cage Spinal Cervical 12d X 14w X 6h 6 Degree - [id number] Implanted:Qty: 1 on 10/18/2019 by Antonino Webb MD at [facility] N/A: Spine Cervical [employer] [id number] 07/14/2024 [id number] / / [id number] [employer] [id number] Cage Spinal Cervical 12d X 14w X 7h 6 Degree - [id number] Implanted:Qty: 1 on 10/18/2019 by Antonino Webb MD at [facility] N/A: Spine Cervical [employer] [id number] 07/14/2024 [id number] / / [id number] [facility] [id number] Mambo 37mm 6 Hole Modular [place] 1 Step Lock Mechanism Spine - [id number] Implanted:Qty: 1 on 10/18/2019 by Antonino Webb MD at [facility] N/A: Spine Cervical [facility] [id number] / / Procedures Procedure Name Priority Date/Time Associated Diagnosis Comments EGFR Routine 10/03/2019 2:07 PM MINE ANALYST Cervical radiculopathy SERUM LIPID PANEL Routine 10/22/2015 9:3 5 AM MINE ANALYST from Last 3 Months or Most Recently Relevant to Health Maintenance Results * eGFR (10/03/2019 2:07 PM MINE ANALYST) eGFR >60 mL/min/1.7 3 m2 [facility] Comment: Interpretive Data Reference Interval Normal >/= 90 mL/min/1.73m2 Mildly decreased* 60 - 89 mL/min/1.73m2 Mildly to moderately decreased 45 - 59 mL/min/1.73m2 Moderately to severely decreased 30 - 44 mL/min/1.73m2 Severely decreased 15 - 29 mL/min/1.73m2 Kidney Failure < 15 mL/min/1.73m2 *Relative to young adult level If -[place] multiply value by 1.16. Estimated glomerular filtration rate is determined by the CKD-EPI equation recommended by the National Kidney Foundation (KDIGO 2012 Clinical Practice Guideline for the Evaluation and Management of Chronic Kidney Disease. Kidney Intnl Suppl Oct 2012;3:1). The CKD-EPI equation should not be used for patients with unstable renal function and has not been validated in children and those over 70. Current interpretive data was last reviewed 2016. Blood specimen (specimen) 10/03/2019 2:07 PM MINE ANALYST 10/03/2019 2:27 PM MINE ANALYST us Teri Carrillo NP LAB BLOOD ORDERABLES Fin al Result [facility] [address]. [place] [address] * (ABNORMAL) Serum lipid panel (10/22/2015 9:35 AM MINE ANALYST) Cholesterol 151 0 - 200 mg/dl HISTORICAL RESULTS Comment: Interpretive Data Desirable: <200 mg/dL Borderline high: 200-239 mg/dL High: >240 mg/dL Literature Reference: National Cholesterol Education Program (NCEP) Expert Panel on Detection, Evaluation, and Treatment of High Blood Cholesterol in Adults (Adult Treatment Panel III). Circulation 2004; 110:227. Current interpretive data was last revised on 2005. Triglycerides 212(H) 0 - 150 mg/dl HISTORICAL RESULTS Comment: Interpretive Data Desirable: < 150 mg/dL Borderline High: 150 - 199 mg/dL High: > 200 mg/dL Literature Reference: See Cholesterol Current interpretive data was last revised on 07. HDL 50 40 - 199 mg/dl HISTORICAL RESULTS Comment: Interpretive Data Less than 40 mg/dL - low; A major risk factor for heart disease. Greater than or equal to 60 mg/dL - High; considered protective of heart disease. Literature Reference: See Cholesterol Current interpretive data was last revised on 2008. LDL 59 0 - 129 mg/dl HISTORICAL RESULTS Comment: Interpretive Data Optimal: < 100 mg/dL Near Optimal: 100 - 129 mg/dL Borderline High: 130 - 159 mg/dL High: > 160 mg/dL Literature Reference: See Cholesterol Current interpretive data was last revised on 07. Non-HDL cholesterol, calculated 101 mg/dl HISTORICAL RESULTS Comment: Interpretive Data When triglycerides are >200 mg/dL, non-HDL C is a secondary target of therapy, with a goal 30 mg/dL higher than the identified LDL-C goal. Reference: See Cholesterol Reference. Current interpretive data was last revised 2012. Serum 10/22/2015 9:35 AM MINE ANALYST us José Bass LAB BLOOD ORDERABLES Final Resul t HISTORICAL RESULTS from Last 3 Months or Most Recently Relevant to Health Maintenance Insurance T MEDICARE MEDICARE PHYSICIANS [facility] INS [facility] MEDICARE ADVANTAGE T MEDICARE [facility] Address: [facility] [id number] [place] [address] Advance Directives For more information, please contact: [phone] * Full Code (Latest Code Status on File) Date Activated Date Inactivated Comments 10/18/2019 1:26 PM 10/19/2019 7:21 PM Care Teams Doll Eye Setter Relationship Specialty Start Date End Date Sajan Velasquez MD [address] [place] [id number] PCP - General Family Medicine 07/23/23
--- OUTSIDE RECORDS SUMMARY | 2025-04-13 09:33 | XMS_ITS | Referral Summary ---
Author Organization [facility] Address [address] [place] [address] Care Team Providers Care Screedman Name Role Phone Sajan Velasquez MD Primary Care Provider [phone] Encounters Date Type Department Care Team Description 03/13/2025 1:00 PM CDT Office Visit [facility] [address] 6th [place] [address] [place] [address] Sariah Ritchie PA Dementia without behavioral disturbance (HCC) from Last 3 Months Allergies Active Allergy Reactions Criticality Noted Date [...] (250 mg total) by mouth nightly Active ynfleyhk-cip-vy or-UR-hjaecw (CENTRUM SILVER WOMEN) 8 mg iron-400 mcg-300 [...] pain (neck) 08/09/2013 Arthralgia of shoulder 08/09/2013 Immunizations Immunization Administration Dates Next Due Influenza, Quadrivalent, Spl it, Preservative Free, Intramuscular 07/10/2014 Influenza, Trivalent, High D ose, Split, Preservative Free, Intramuscular 07/19/2018 Influenza, Trivalent, Preservative Free, Intramu scular 07/12/2013 Influenza, Unspecified 07/14/2013,07/21/2012 Pneumococcal Conjugate PCV 13 03/10/2018 Pneumococcal, Unspecified 02/05/2009 ZOSTER LIVE 08/17/2018,02/05/2009 ZOSTER Recombinant 08/17/2018,03/10/2018 Social History Tobacco Use Types Packs/Day Years Used Date Smoking Tobacco: Former Cigarettes 1 16 1 976 - 1991 Smokeless Tobacco: Never Tobacco Cessation:Counseling Given: Not [...] on file Legal Sex Female 2:45 AM MANAGER CREDIT Gender Identity Female 02/23/2020 6:25 PM CDT Sexual Orientation Not on file Last Filed Vital Signs Vital Sign Reading Time Taken Comments Blood Pressure 124/65 03/13/2025 12:34 PM CDT Pulse 58 03/13/2025 12:34 PM CDT Temperature 37 C (98.6 F) 08/12/2023 12:40 PM CDT Respiratory Rate 18 10/19/2019 9:05 AM MANAGER CREDIT Oxygen Saturation 98% 08/12/2023 12:40 PM CDT Inhaled Oxygen Concentration - - Weight 71.2 kg (157 lb) 03/13/2025 12:34 PM CDT Height 157.5 cm (5' 2) 03/13/2025 12:34 PM CDT Body Mass Index 28.72 03/13/2025 12:34 PM CDT Plan of Treatment Not on file Medical Devices Implanted Type Area Predatory Hunter Device Identifier Shelf Expiration Date Model / Serial / Lot [facility] [id number] Mambo Settle Spinal Cervical Screw Bone Silver - [id number] Implanted:Qty: 2 on 10/18/2019 by Antonino Webb MD at [facility] Screw N/A: Spine Cervical [facility] [id number] / / [facility] Cs 1831-15 Screw Mambo Bone Self-Drilling 3.5mm Length 15mm - [id number] Implanted:Qty: 6 on 10/18/2019 by Antonino Webb MD at [facility] Screw N/A: Spine Cervical [facility] CS 1831-15 / / Bilateral Total Hip Arthroplasty Hip Cervical Spine-Laminecto my Hardware Spine Cervical Abyrx Os-201 Hemasorb Os-Spa Spatula Wax 2gm Bone Sterile - [id number] Implanted:Qty: 1 on 10/18/2019 by Antonino Webb MD at [facility] N/A: Spine Cervical Abyrx 05/11/2022 OS-201 / / [id number] [employer] 700-025 I Factor Allograft Putty Syringe Graft 2.5cc Bone - [id number] Implanted:Qty: 1 on 10/18/2019 by Antonino Webb MD at [facility] N/A: Spine Cervical [employer] 06/11/2022 700-025 / / [id number] [employer] [id number] Cage Spinal Cervical 12d X 14w X 6h 6 Degree - [id number] Implanted:Qty: 1 on 10/18/2019 by Antonino Webb MD at [facility] N/A: Spine Cervical [employer] [id number] 07/14/2024 [id number] / / [id number] [employer] [id number] Cage Spinal Cervical 12d X 14w X 7h 6 Degree - [id number] Implanted:Qty: 1 on 10/18/2019 by Antonino Webb MD at [facility] N/A: Spine Cervical [employer] [id number] 07/14/2024 [id number] / / [id number] [facility] [id number] Mambo 37mm 6 Hole Modular [place] 1 Step Lock Mechanism Spine - [id number] Implanted:Qty: 1 on 10/18/2019 by Antonino Webb MD at [facility] N/A: Spine Cervical [facility] [id number] / / Procedures Procedure Name Priority Date/Time Associated Diagnosis Comments EGFR Routine 10/03/2019 2:07 PM MANAGER CREDIT Cervical radiculopathy SERUM LIPID PANEL Routine 10/22/2015 9:3 5 AM MANAGER CREDIT from Last 3 Months or Most Recently Relevant to Health Maintenance Results * eGFR (10/03/2019 2:07 PM MANAGER CREDIT) eGFR >60 mL/min/1.7 3 m2 [facility] Comment: Interpretive Data Reference Interval Normal >/= 90 mL/min/1.73m2 Mildly decreased* 60 - 89 mL/min/1.73m2 Mildly to moderately decreased 45 - 59 mL/min/1.73m2 Moderately to severely decreased 30 - 44 mL/min/1.73m2 Severely decreased 15 - 29 mL/min/1.73m2 Kidney Failure < 15 mL/min/1.73m2 *Relative to young adult level If -[place] multiply value by 1.16. Estimated glomerular filtration [...] 2016. Blood specimen (specimen) 10/03/2019 2:07 PM MANAGER CREDIT 10/03/2019 2:27 PM MANAGER CREDIT us Teri Carrillo NP LAB BLOOD ORDERABLES Fin al Result [facility] [address] [facility] [place] [address] * (ABNORMAL) Serum lipid panel (10/22/2015 9:35 AM MANAGER CREDIT) Cholesterol 151 0 - 200 mg/dl HISTORICAL [...] data was last revised 2012. Serum 10/22/2015 9:3 5 AM MANAGER CREDIT José Bass LAB BLOOD ORDERABLES Final Resul t HISTORICAL RESULTS from Last 3 Months or Most Recently Relevant to Health Maintenance Insurance TNA MEDICARE MEDICARE PHYSICIANS [facility] INS [facility] MEDICARE ADVANTAGE [facility] MED[facility] Address: [address] [address] [place] [address] [facility] MEDICARE Advance Directives For more information, please contact: [phone] * Full Code (Latest Code Status on File) Date Activated Date Inactivated Comments 10/18/2019 1:26 PM 10/19/2019 7:21 PM Care Teams Screedman Relationship Specialty Start Date End Date Sajan Velasquez MD [address] [place] [id number] PCP - General Family Medicine 07/23/23
== END 2025-04-13 09:28 | disposition home or self-care (01) ==
LOC: ANHIMG 09:29
PROVIDERS: PCP Physician Assistant Medical; Visit Provider Obstetrics & Gynecology Gynecology
DX: Z12.31 Encounter for screening mammogram for malignant neoplasm of breast (principal)
CPT/HCPCS: 77063; 77067

== ENCOUNTER 2025-05-11 11:52 | Emergency (ER) | payer MEDICARE, SELFPAY ==
--- NOTE | ~2025-05-11 | CT_ITS ---
History: Fall PROCEDURE: CT cervical spine without intravenous contrast. COMPARISON: None. Reference is made to an MRI examination of the cervical spine dated 02/10/2020 which demonstrated moderate to advanced degenerative. TECHNIQUE: Multiple contiguous axial images of the cervical spine were performed without the administration of i ntravenous contrast. 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 Anterior fixation at the levels of C3-C5 is noted with additional disc spacers. Posterior fixation at the levels of C7 and T1. Evaluation of the anterior vertebral bodies of C3 and C4 is limited secondary to streak metallic fred fact from the patient's dental appliances. No acute significantly displaced fractures are appreciated. The bilateral lung apices are unremarkable. Densely calcified atherosclerotic disease. No additional soft tissue abnormality is present. The airway is patent. Impression: Advanced degenerative disease within the cervical spine with both anterior and posterior fixation. No acute significantly displaced fractures are appreciated. Reviewed, dictated and finalized at location A. Impression: Advanced degenerative disease within the cervical spine with both anterior and posterior fixation. No acute significantly displaced fractures are appreciated.
--- NOTE | ~2025-05-11 | CT_ITS ---
History: Fall PROCEDURE: CT head without contrast. COMPARISON: None. Reference is made to an MRI examination of the brain dated 08/31/2023, for which no rmal pressure hydrocephalus is suspected TECHNIQUE: Axial imaging of the head performed from the skull base to the vertex without IV contrast. Sagittal a nd coronal reformations obtained. Examination is markedly limited by a significant amount of motion artifact, despite multiple repeated attempts by the CT technologists DLP: 1211 mGy-cm FINDINGS: The ventricles are enlarged. The dilatation of the ventricles is disproportional to the degree of sulcal prominence, unchanged fro m MRI examination performed in 2022. Decreased attenuation is identified within the periventricular white matter, likely secondary to micr ovascular ischemic disease, in a patient of this age. There is no mass, mass effect or midline shift. There is no abnormal extra-axial fluid collection or large intracranial hemorrhage. Visualized paranasal sinuses are clear. The mastoid air cells are well aerated. No acute displaced fractures within the overlying cranium. Impression: Limited CT examination of the brain secondary to motion artifact is without large acute intracranial hemorrhage or significant mass effect. Reviewed, dictated and finalized at location A. Impression: Limited CT examination of the brain secondary to motion artifact is without lar ge acute intracranial hemorrhage or significant mass effect.
[2025-05-11 11:52] VITALS: BP 135/90; PULSE 68; RESP 16; TEMP 36.4; O2SAT 99
--- OUTSIDE RECORDS SUMMARY | 2025-05-11 11:54 | XMS_ITS | Referral Summary ---
Author Organization [facility] al Address [address] [place] [address] Care Team Providers Care Card Brusher Name Role Phone Sajan Velasquez MD Primary Care Provider [phone] [phone] Encounters Date Type Department Care Team Description 03/13/2025 1:00 PM CDT Office Visit [facility] [address] [place] [address] [place] [address] Sariah Ritchie PA Dementia without behavioral disturbance [...] (250 mg total) by mouth nightly Active yrauuufy-zbg-nn uw-NM-xbuckt (CENTRUM SILVER WOMEN) 8 mg iron-400 mcg-300 [...] on file Legal Sex Female 2:45 AM TUGBOAT DISPATCHER Gender Identity Female 02/23/2020 6:25 PM CDT Sexual Orientation Not on file Last Filed Vital Signs Vital Sign Reading Time Taken Comments Blood Pressure 124/65 03/13/2025 12:34 PM CDT Pulse 58 03/13/2025 12:34 PM CDT Temperature 37 C (98.6 F) 08/12/2023 12:40 PM CDT Respiratory Rate 18 10/19/2019 9:05 AM TUGBOAT DISPATCHER Oxygen Saturation 98% 08/12/2023 12:40 PM CDT Inhaled Oxygen Concentration - - Weight 71.2 kg (157 lb) 03/13/2025 12:34 PM CDT Height 157.5 cm (5' 2) 03/13/2025 12:34 PM CDT Body Mass Index 28.72 03/13/2025 12:34 PM CDT Plan of Treatment Not on file Medical Devices Implanted Type Area Currency Examiner Device Identifier Shelf Expiration Date Model / Serial / Lot [facility] [id number] Mambo Settle Spinal Cervical Screw Bone Silver - [id number] Implanted:Qty: 2 on 10/18/2019 by Antonino Webb MD at [facility] Screw N/A: Spine Cervical [facility] [id number] 1 / / [facility] Cs 1831-15 Screw Mambo Bone Self-Drilling 3.5mm Length 15mm - [id number] Implanted:Qty: 6 on 10/18/2019 by Antonino Webb MD at [facility] Screw N/A: Spine Cervical [facility] CS 1831-15 / / Bilateral Total Hip Arthroplasty Hip Cervical Spine-Laminecto my Hardware Spine Cervical Abyrx Os-201 Hemasorb Os-Spa Spatula Wax 2gm Bone Sterile - [id number] Implanted:Qty: 1 on 10/18/2019 by Antonino Webb MD at [facility] N/A: Spine Cervical Abyrx 05/11/2022 OS-201 / / [id number] Cer[employer]ics Inc 700-025 I Factor Allograft Putty Syringe Graft 2.5cc Bone - [id number] Implanted:Qty: 1 on 10/18/2019 by Antonino Webb MD at [facility] N/A: Spine Cervical [employer] Inc 06/11/2022 700-025 / / [id number] T[employer] [id number] Cage Spinal Cervical 12d X 14w X 6h 6 Degree - [id number] Implanted:Qty: 1 on 10/18/2019 by Antonino Webb MD at [facility] N/A: Spine Cervical [employer] [id number] 07/14/2024 [id number] / / [id number] [employer] [id number] Cage Spinal Cervical 12d X 14w X 7h 6 Degree - [id number] Implanted:Qty: 1 on 10/18/2019 by Antonino Webb MD at [facility] N/A: Spine Cervical [employer] [id number] 07/14/2024 [id number] / / [id number] [facility] [id number] Mambo 37mm 6 Hole Modular [place] 1 Step Lock Mechanism Spine - [id number] Implanted:Qty: 1 on 10/18/2019 by Antonino Webb MD at [facility] N/A: Spine Cervical [facility] [id number] / / Procedures Procedure Name Priority Date/Time Associated Diagnosis Comments EGFR Routine 10/03/2019 2:07 PM TUGBOAT DISPATCHER Cervical radiculopathy SERUM LIPID PANEL Routine 10/22/2015 9:3 5 AM TUGBOAT DISPATCHER from Last 3 Months or Most Recently Relevant to Health Maintenance Results * eGFR (10/03/2019 2:07 PM TUGBOAT DISPATCHER) eGFR >60 mL/min/1.7 3 m2 [facility] Comment: Interpretive Data Reference Interval Normal >/= 90 mL/min/1.73m2 Mildly decreased* 60 - 89 mL/min/1.73m2 Mildly to moderately decreased 45 - 59 mL/min/1.73m2 Moderately to severely decreased 30 - 44 mL/min/1.73m2 Severely decreased 15 - 29 mL/min/1.73m2 Kidney Failure < 15 mL/min/1.73m2 *Relative to young adult level If -[place] Islander multiply value by 1.16. Estimated glomerular filtration [...] 2016. Blood specimen (specimen) 10/03/2019 2:07 PM TUGBOAT DISPATCHER 10/03/2019 2:27 PM TUGBOAT DISPATCHER us Teri Carrillo NP LAB BLOOD ORDERABLES Fin al Result JIAN [facility] [address] [facility] [place] [address] * (ABNORMAL) Serum lipid panel (10/22/2015 9:35 AM TUGBOAT DISPATCHER) Cholesterol 151 0 - 200 mg/dl HISTORICAL [...] revised 2012. Serum 10/22/2015 9:3 5 AM TUGBOAT DISPATCHER José Bass LAB BLOOD ORDERABLES Final Resul t HISTORICAL RESULTS from Last 3 Months or Most Recently Relevant to Health Maintenance Insurance [employer] MEDICARE MEDICARE [facility] Address: [address] [place] [address] [facility]ICIANS [facility] INS CO [facility] MEDICARE ADVANTAGE [facility] MEDICARE Address: [address] [address] [place] [address] [facility]ICARE [facility] Address: [address] [place] [address] Advance Directives For more information, please contact: [phone] * Full Code (Latest Code Status on File) Date Activated Date Inactivated Comments 10/18/2019 1:26 PM 10/19/2019 7:21 PM Care Teams Card Brusher Relationship Specialty Start Date End Date Sajan Velasquez MD [address] [place] [address] PCP - General Family Medicine 07/23/23
--- OUTSIDE RECORDS SUMMARY | 2025-05-11 11:54 | XMS_ITS | Clinical Summary ---
Author Organization [facility] Address [address] [place] [address] Care Team Providers Care Newspaper Managing Editor Name Role Phone Sajan Velasquez MD Primary Care Provider +1 [phone] Allergies Active Allergy Reactions Criticality Noted Date [...] (250 mg total) by mouth nightly Active wfezefbu-qpm-cu gf-LD-gpobsb (CENTRUM SILVER WOMEN) 8 mg iron-400 mcg-300 [...] Description 03/13/2025 1:00 PM CDT Office Visit [facility] [address] [place] [address] [place] [address] Sariah Ritchie PA Dementia without behavioral disturbance [...] SURGERY 10/12/2003 - 10/11/2004 Left Right 2015 [place] ARTHRD PST/PSTLAT TQ 1NTRSPC CRV BELW C2 [...] on file Legal Sex Female 2:45 AM NETWORKING ENGINEER Gender Identity Female 02/23/2020 6:25 PM CDT Sexual Orientation Not on file Obstetrics History Last Filed Vital Signs Vital Sign Reading Time Taken Comments Blood Pressure 124/65 03/13/2025 12:34 PM CDT Pulse 58 03/13/2025 12:34 PM CDT Temperature 37 C (98.6 F) 08/12/2023 12:40 PM CDT Respiratory Rate 18 10/19/2019 9:05 AM NETWORKING ENGINEER Oxygen Saturation 98% 08/12/2023 12:40 PM CDT [...] 03/10/2018, 02/05/2009 eGFR 10/03/2020 10/03/2019 Influenza Vaccine (#1) 2025 8, 07/10/2014, 07/14/2013, Additional history exists Zoster Vaccine Completed 08/17/2018, 03/2018, 03/10/2018, Additional history exists Medical Devices Implanted Type Area Account Financial Manager Device Identifier Shelf Expiration Date Model / Serial / Lot [facility] [id number] Mambo Settle Spinal Cervical Screw Bone Silver - [id number] Implanted:Qty: 2 on 10/18/2019 by Antonino Webb MD at [facility] Screw N/A: Spine Cervical [facility] [id number] 1 / / [facility] Cs 1831-15 Screw Mambo Bone Self-Drilling 3.5mm Length 15mm - [id number] Implanted:Qty: 6 on 10/18/2019 by Antonino Webb MD at [facility] Screw N/A: Spine Cervical [facility] CS 1831-15 / / Bilateral Total Hip Arthroplasty Hip Cervical Spine-Laminecto my Hardware Spine Cervical Abyrx Os-201 Hemasorb Os-Spa [place] Wax 2gm Bone Sterile - [id number] Implanted:Qty: 1 on 10/18/2019 by Antonino Webb MD at [facility] N/A: Spine Cervical Abyrx 05/11/2022 OS-201 / / [id number] [employer] 700-025 I Factor Allograft Putty Syringe Graft 2.5cc Bone - [id number] Implanted:Qty: 1 on 10/18/2019 by Antonino Webb MD at [facility] N/A: Spine Cervical [employer] 06/11/2022 700-025 / / [id number] [employer] [id number] Cage Spinal Cervical 12d X 14w X 6h 6 Degree - [id number] Implanted:Qty: 1 on 10/18/2019 by Antonino Webb MD at [facility] N/A: Spine Cervical [employer] [id number] 07/14/2024 [id number] / / [id number] [employer] [id number] Cage Spinal Cervical 12d X 14w X 7h 6 Degree - [id number] Implanted:Qty: 1 on 10/18/2019 by Antonino Webb MD at [facility] N/A: Spine Cervical [employer] [id number] 07/14/2024 [id number] / / [id number] [facility] [id number] Mambo 37mm 6 Hole Modular [place] 1 Step Lock Mechanism Spine - [id number] Implanted:Qty: 1 on 10/18/2019 by Antonino Webb MD at [facility] N/A: Spine Cervical [facility] [id number] 7 / / Procedures Procedure Name Priority Date/Time Associated Diagnosis Comments EGFR Routine 10/03/2019 2:07 PM NETWORKING ENGINEER Cervical radiculopathy SERUM LIPID PANEL Routine 10/22/2015 9:3 5 AM NETWORKING ENGINEER from Last 3 Months or Most Recently Relevant to Health Maintenance Results * eGFR (10/03/2019 2:07 PM NETWORKING ENGINEER) eGFR >60 mL/min/1.7 3 m2 [facility] Comment: Interpretive Data Reference Interval Normal >/= 90 mL/min/1.73m2 Mildly decreased* 60 - 89 mL/min/1.73m2 Mildly to moderately decreased 45 - 59 mL/min/1.73m2 Moderately to severely decreased 30 - 44 mL/min/1.73m2 Severely decreased 15 - 29 mL/min/1.73m2 Kidney Failure < 15 mL/min/1.73m2 *Relative to young adult level If -[place] multiply value by 1.16. Estimated glomerular filtration [...] 2016. Blood specimen (specimen) 10/03/2019 2:07 PM NETWORKING ENGINEER 10/03/2019 2:27 PM NETWORKING ENGINEER us Teri Carrillo NP LAB BLOOD ORDERABLES Fin al Result JIAN [facility] [address] [address]. [place] [address] * (ABNORMAL) Serum lipid panel (10/22/2015 9:35 AM NETWORKING ENGINEER) Cholesterol 151 0 - 200 mg/dl HISTORICAL [...] last revised 2012. Serum 10/22/2015 9:35 AM NETWORKING ENGINEER us José Bass LAB BLOOD ORDERABLES Final Resul t HISTORICAL RESULTS from Last 3 Months or Most Recently Relevant to Health Maintenance Insurance T MEDICARE MEDICARE [facility] Address: [address] [address] [place] [address] PHYSICIANS [facility] INS CO [facility] MEDICARE [facility] Address: [address] [address] [place] [address] [facility] MEDICARE [facility] MEDICARE Address: [facility] [id number] [place] [address] Advance Directives For more information, please contact: [phone] * Full Code (Latest Code Status on File) Date Activated Date Inactivated Comments 10/18/2019 1:26 PM 10/19/2019 7:21 PM Care Teams Newspaper Managing Editor Relationship Specialty Start Date End Date Sajan Velasquez MD [address] [place] [address] PCP - General Family Medicine 07/23/23
--- NOTE | 2025-05-11 13:46 | ED.FALL ---
HPI - Fall General Chief Complaint: Fall Stated Complaint: fall Time Seen by Provider: 05/11/25 13:25 History of Present Illness HPI Narrative: Patient has h/o dementia, was using her walker when she lost her balance and fell backwards; no LOC but did hit her head, it was bleeding afterwards. Also has some bruising to her thumb but moving it normally, no pain elsewhere. Related Data Home Medications ?Medication ?Instructions ?Recorded ?Confirmed ?Last Taken ?Type aspirin 81 mg tablet 81 mg PO DAILY 08/03/20 11/30/24 08/05/20 History calcium polycarbophil 625 mg 625 mg PO BID 08/03/20 11/30/24 08/06/20 History tablet (FiberCon) magnesium 250 mg tablet 250 mg PO DAILY 08/03/20 11/30/24 08/06/20 History multivit with minerals-iron 18 1 tablet PO DAILY 08/03/20 11/30/24 08/06/20 History mg-folic ac 400 mcg-vit K 25 mcg tablet (Adults Multivitamin) omega 8-ond-mkg-fish oil 1,200 mg 1 cap PO BID 08/03/20 11/30/24 08/06/20 History (144 mg-216 mg) capsule (Fish Oil) vitamin B complex 1 cap PO DAILY 08/03/20 11/30/24 08/06/20 History Allergies Allergy/AdvReac Type Severity Reaction Status Date / Time fentanyl Allergy Severe Swelling Verified 11/30/24 10:37 of Lip/Tongue/Throat Sulfa (Sulfonamide Allergy Severe Hives Verified 11/30/24 10:37 Antibiotics) sulfamethizole Allergy Severe Hives Verified 11/30/24 10:37 trimethoprim Allergy Severe Hives Verified 11/30/24 10:37 adhesive Allergy Intermediate Rash Verified 11/30/24 10:37 morphine Allergy Unknown Rash Verified 11/30/24 10:37 Review of Systems Review of Systems: All systems reviewed & are unremarkable except as noted in HPI and below PMFSH Past Medical History Medical History (Updated 05/11/25 @ 13:46 by Yusra Sheppard MD) Cervical stenosis of spine Fusion x2, Dr. Webb CKD (chronic kidney disease) stage 2, GFR 60-89 ml/min Hypertension Multiple falls Dementia Nerve damage of foot Vitamin D deficiency Vitamin A deficiency Hyperkalemia Hormone replacement therapy (HRT) Cognitive dysfunction Bilateral carpal tunnel syndrome Allergy to sulfa drugs Right foot drop Closed fracture of fifth metatarsal bone Diabetes Arthritis Hyperlipidemia Surgical History Surgical History History of total right hip replacement Hx of fusion of cervical spine 2019 History of right hip replacement 2016 H/O excision of lamina of cervical vertebra for decompression of spinal cord december 2013 History of left hip replacement 2004 Family History Family History Father Family history of Alzheimer's disease Diabetes mellitus Heart disease Mother Family history of coronary artery disease Diabetes mellitus Other Carcinoma of colon Family history of obesity Social History Social History (Updated 05/26/24 @ 09:22 by Trevor Duque) Social History: patient is somewhat confident with medical forms Smoking packs per day: 1 Smoking cigarettes per day: 20.0 Years smoked: 16 Smoking pack-years: 16.00 Smoking status: Former smoker Tobacco type: cigarettes Second hand tobacco smoke exposure: No Smoking end date: 10/12/89 Alcohol intake: current Drinks per week: 3 Alcohol use details: WINE Substance use: never Substance use type: does not use Do You Feel Safe in your Home?: Yes Lack of Transportation: No Lack of Food: Never True Current Housing: I Do Not Have Housing Concerned About Future Housing: No Difficulty Paying Gas/Electric Bills: No Difficulty Paying for Meds: No Currently Unemployed: No Education: High School Diploma/GED Difficulty w/ Childcare or Family Care: No Living arrangements: with family Occupation/Education: retired Gender identity (if verbalized by the patient): Female Spiritual care concerns: No Exam Narrative: EXAMINATION OF ORGAN SYSTEMS/BODY AREAS: Constitutional: Vital signs per nursing GENERAL:[No acute distress, non-toxic appearing.] HEAD: Contusion with 1.5 cm laceration posterior scalp EYES: EOMI, conjunctiva normal ENT: Hearing grossly intact LUNGS: Nonlabored breathing. HEART: [Regular rate and rhythm] ABD: [Soft], [nontender to palpation] EXT: Normal range of motion, bruising to base of left thumb, no scaphoid tenderness SKIN: Laceration to scalp; bruising to base of left thumb, no scaphoid tenderness, normal range of motion NEURO: [Alert and oriented x 3. No gross focal sensory or strength deficits.] PSYCH: Normal affect Course Vital Signs Vital signs: Vital Signs Temperature 97.6 F 05/11/25 11:52 Pulse Rate 68 05/11/25 11:52 Respiratory Rate 16 05/11/25 11:52 Blood Pressure 135/90 05/11/25 11:52 Pulse Oximetry 99 05/11/25 11:52 Temperature 97.6 F 05/11/25 11:52 Pulse Rate 68 05/11/25 11:52 Respiratory Rate 16 05/11/25 11:52 Blood Pressure 135/90 05/11/25 11:52 Pulse Oximetry 99 05/11/25 11:52 Procedures Laceration Laceration 1: Date: 05/11/25 Time: 13:57 Site: scalp Side (If applicable): left Size (cm): 1.5 Description: linear Depth: simple, single layer Local Anesthetic: lidocaine 1% Amount of anesthesia used (mL): 2 Pre-repair: wound explored, irrigated, irrigated extensively and deep structures intact ====== Skin Level ====== Skin layer closed with: eleazar Number of sutures: 2 ====== Subcutaneous Layer ====== ====== Muscle Layer ====== ====== Tendon Layer ====== MDM - Fall MDM Narrative Medical decision making narrative: Patient presents after mechanical fall, she is well-appearing, has no chest pain or shortness of breath, has a scalp laceration and contusion and a small bruise to the base of her thumb, with normal range of motion no scaphoid tenderness, so have very low concern for any fracture. CT head and C-spine are negative for acute abnormality. Her injuries cleaned well, closed with eleazar, tetanus is UTD Patient tolerated this well, stable for discharge, family member at bedside. Discharge Plan Discharge Clinical Impression: Laceration of scalp Patient Disposition: Home Condition: Stable Instructions: Head Injury (ED), Staple Care (ED) Additional Instructions: You can have the 2 eleazar taken out in 7-10 days. You can follow up with your PCP and come back for any further issues. Patient Language: Belarusian Prescriptions: No Action metformin 500 mg tablet 500 mg PO BID Qty: 180 1RF Rx Instructions: dose increase 11/28/24 citalopram 20 mg tablet 20 mg PO DAILY Qty: 90 1RF donepezil 10 mg tablet 10 mg PO DAILY Qty: 90 1RF atorvastatin 20 mg tablet 20 mg PO DAILY Qty: 90 1RF trazodone 50 mg tablet 50 mg PO QHS Qty: 90 1RF lisinopril 10 mg tablet 10 mg PO DAILY Qty: 90 1RF L. gasseri-B. bifidum-B longum 1.5 billion cell capsule 1 cap PO .qd Qty: 1 0RF Rx Instructions: OTC calcium polycarbophil [FiberCon] 625 mg Tablet 625 mg PO BID magnesium 250 mg Tablet 250 mg PO DAILY aspirin 81 mg Tablet 81 mg PO DAILY vitamin B complex Capsule 1 cap PO DAILY omega 8-fnv-nad-fish oil [Fish Oil] 1,200 (144-216) mg Capsule 1 cap PO BID Adults Multivitamin 18 mg iron-400 mcg-25 mcg Tablet 1 tablet PO DAILY Follow-up/Referrals: Isabel Paris PA-C [Primary Care Provider] -
--- OUTSIDE RECORDS SUMMARY | 2025-05-11 13:56 | XMS_ITS | Clinical Summary ---
Author Organization [facility] Address [address] [place] [address] Care Team Providers Care Receiving Room Clerk Name Role Phone Sajan Velasquez MD Primary Care Provider +1 [phone] Allergies Active Allergy Reactions Criticality Noted Date [...] (250 mg total) by mouth nightly Active qlkqfiah-twj-mf xf-FH-btmghd (CENTRUM SILVER WOMEN) 8 mg iron-400 mcg-300 [...] Description 03/13/2025 1:00 PM CDT Office Visit [facility] [address] 6th [place] [address] [place] [address] Sariah Ritchie PA Dementia without behavioral disturbance [...] SURGERY 10/12/2003 - 10/11/2004 Left Right 2015 [place] ARTHRD PST/PSTLAT TQ 1NTRSPC CRV BELW C2 [...] on file Legal Sex Female 2:45 AM STEEL PLATE PRINTER Gender Identity Female 02/23/2020 6:25 PM CDT Sexual Orientation Not on file Obstetrics History Last Filed Vital Signs Vital Sign Reading Time Taken Comments Blood Pressure 124/65 03/13/2025 12:34 PM CDT Pulse 58 03/13/2025 12:34 PM CDT Temperature 37 C (98.6 F) 08/12/2023 12:40 PM CDT Respiratory Rate 18 10/19/2019 9:05 AM STEEL PLATE PRINTER Oxygen Saturation 98% 08/12/2023 12:40 PM CDT [...] history exists Medical Devices Implanted Type Area Buttermaker Helper Device Identifier Shelf Expiration Date Model / Serial / Lot [facility] [id number] Mambo Settle Spinal Cervical Screw Bone Silver - [id number] Implanted:Qty: 2 on 10/18/2019 by Antonino Webb MD at [facility] Screw N/A: Spine Cervical [facility] [id number] 1 / / [facility] Cs 1831-15 Screw Mambo Bone Self-Drilling 3.5mm Length 15mm - [id number] Implanted:Qty: 6 on 10/18/2019 by Antonino Webb MD at [facility] Screw N/A: Spine Cervical [facility] CS 1831-15 / / Bilateral Total Hip Arthroplasty Hip Cervical Spine-Laminecto my Hardware Spine Cervical Abyrx Os-201 Hemasorb Os-Spa [place] Wax 2gm Bone Sterile - [id number] Implanted:Qty: 1 on 10/18/2019 by Antonino Webb MD at [facility] N/A: Spine Cervical Abyrx 05/11/2022 OS-201 / / [id number] [employer] 700-025 I Factor Allograft Putty Syringe Graft 2.5cc Bone - [id number] Implanted:Qty: 1 on 10/18/2019 by Antonino Webb MD at [facility] N/A: Spine Cervical [employer] 06/11/2022 700-025 / / [id number] [employer] [id number] Cage Spinal Cervical 12d X 14w X 6h 6 Degree - [id number] Implanted:Qty: 1 on 10/18/2019 by Antonino Webb MD at [facility] N/A: Spine Cervical [employer] [id number] 07/14/2024 [id number] / / [id number] [employer] [id number] Cage Spinal Cervical 12d X 14w X 7h 6 Degree - [id number] Implanted:Qty: 1 on 10/18/2019 by Antonino Webb MD at [facility] N/A: Spine Cervical [employer] [id number] 07/14/2024 [id number] / / [id number] [facility] [id number] Mambo 37mm 6 Hole Modular [place] 1 Step Lock Mechanism Spine - [id number] Implanted:Qty: 1 on 10/18/2019 by Antonino Webb MD at [facility] N/A: Spine Cervical [facility] [id number] / / Procedures Procedure Name Priority Date/Time Associated Diagnosis Comments EGFR Routine 10/03/2019 2:07 PM STEEL PLATE PRINTER Cervical radiculopathy SERUM LIPID PANEL Routine 10/22/2015 9:3 5 AM STEEL PLATE PRINTER from Last 3 Months or Most Recently Relevant to Health Maintenance Results * eGFR (10/03/2019 2:07 PM STEEL PLATE PRINTER) eGFR >60 mL/min/1.7 3 m2 JIAN [facility] Comment: Interpretive Data Reference Interval Normal >/= 90 mL/min/1.73m2 Mildly decreased* 60 - 89 mL/min/1.73m2 Mildly to moderately decreased 45 - 59 mL/min/1.73m2 Moderately to severely decreased 30 - 44 mL/min/1.73m2 Severely decreased 15 - 29 mL/min/1.73m2 Kidney Failure < 15 mL/min/1.73m2 *Relative to young adult level If -Irish multiply value by 1.16. Estimated glomerular filtration [...] 2016. Blood specimen (specimen) 10/03/2019 2:07 PM STEEL PLATE PRINTER 10/03/2019 2:27 PM STEEL PLATE PRINTER us Teri Carrillo NP LAB BLOOD ORDERABLES Fin al Result JIAN [facility] [address] [facility]. [place] [address] * (ABNORMAL) Serum lipid panel (10/22/2015 9:35 AM STEEL PLATE PRINTER) Cholesterol 151 0 - 200 mg/dl HISTORICAL [...] last revised 2012. Serum 10/22/2015 9:35 AM STEEL PLATE PRINTER us José Bass LAB BLOOD ORDERABLES Final Resul t HISTORICAL RESULTS from Last 3 Months or Most Recently Relevant to Health Maintenance Insurance T MEDICARE MEDICARE [facility] INS CO [facility] MEDICARE ADVANTAGE [facility] MEDICARE [facility] MEDICARE Address: [facility] [id number] [place] [address] Advance Directives For more information, please contact: [phone] * Full Code (Latest Code Status on File) Date Activated Date Inactivated Comments 10/18/2019 1:26 PM 10/19/2019 7:21 PM Care Teams Receiving Room Clerk Relationship Specialty Start Date End Date Sajan Velasquez MD [address] [place] [id number] PCP - General Family Medicine 07/23/23
--- OUTSIDE RECORDS SUMMARY | 2025-05-11 13:56 | XMS_ITS | Referral Summary ---
Author Organization [facility] al Address [address] [place] [address] Care Team Providers Care Fiber Technologist Name Role Phone Sajan Velasquez MD Primary Care Provider [phone] Encounters Date Type Department Care Team Description 03/13/2025 1:00 PM CDT Office Visit [facility] [address] [place] [address] [place] [address] Sariah Ritchie PA Dementia without behavioral disturbance [...] (250 mg total) by mouth nightly Active jnttqphq-hgz-gn ri-DG-zgdame (CENTRUM SILVER WOMEN) 8 mg iron-400 mcg-300 [...] on file Legal Sex Female 2:45 AM BANK MANAGER Gender Identity Female 02/23/2020 6:25 PM CDT Sexual Orientation Not on file Last Filed Vital Signs Vital Sign Reading Time Taken Comments Blood Pressure 124/65 03/13/2025 12:34 PM CDT Pulse 58 03/13/2025 12:34 PM CDT Temperature 37 C (98.6 F) 08/12/2023 12:40 PM CDT Respiratory Rate 18 10/19/2019 9:05 AM BANK MANAGER Oxygen Saturation 98% 08/12/2023 12:40 PM CDT Inhaled Oxygen Concentration - - Weight 71.2 kg (157 lb) 03/13/2025 12:34 PM CDT Height 157.5 cm (5' 2) 03/13/2025 12:34 PM CDT Body Mass Index 28.72 03/13/2025 12:34 PM CDT Plan of Treatment Not on file Medical Devices Implanted Type Area Public Relations Consultant Device Identifier Shelf Expiration Date Model / Serial / Lot [facility] [id number] Mambo Settle Spinal Cervical Screw Bone Silver - [id number] Implanted:Qty: 2 on 10/18/2019 by Antonino Webb MD at [facility] Screw N/A: Spine Cervical [facility] [id number] / / [facility] Cs 1831-15 Screw Mambo Bone Self-Drilling 3.5mm Length 15mm - [id number] Implanted:Qty: 6 on 10/18/2019 by Antonino Webb MD at [facility] Screw N/A: Spine Cervical [facility] CS 1831-15 / / Bilateral Total Hip Arthroplasty Hip Cervical Spine-Laminecto my Hardware Spine Cervical Abyrx Os-201 Hemasorb Os-Spa [place] Wax 2gm Bone Sterile - [id number] Implanted:Qty: 1 on 10/18/2019 by Antonino Webb MD at [facility] N/A: Spine Cervical Abyrx 05/11/2022 OS-201 / / [id number] [employer] 700-025 I Factor Allograft Putty Syringe Graft 2.5cc Bone - [id number] Implanted:Qty: 1 on 10/18/2019 by Antonino Webb MD at [facility] N/A: Spine Cervical [employer] 06/11/2022 700-025 / / [id number] [employer] [id number] Cage Spinal Cervical 12d X 14w X 6h 6 Degree - [id number] Implanted:Qty: 1 on 10/18/2019 by Antonino Webb MD at [facility] N/A: Spine Cervical [employer] [id number] 07/14/2024 [id number] / / [id number] [employer] [id number] Cage Spinal Cervical 12d X 14w X 7h 6 Degree - [id number] Implanted:Qty: 1 on 10/18/2019 by Antonino Webb MD at [facility] N/A: Spine Cervical [employer] [id number] 07/14/2024 [id number] / / [id number] [facility] [id number] Mambo 37mm 6 Hole Modular [place] 1 Step Lock Mechanism Spine - [id number] Implanted:Qty: 1 on 10/18/2019 by Antonino Webb MD at [facility] N/A: Spine Cervical [facility] [id number] / / Procedures Procedure Name Priority Date/Time Associated Diagnosis Comments EGFR Routine 10/03/2019 2:07 PM BANK MANAGER Cervical radiculopathy SERUM LIPID PANEL Routine 10/22/2015 9:3 5 AM BANK MANAGER from Last 3 Months or Most Recently Relevant to Health Maintenance Results * eGFR (10/03/2019 2:07 PM BANK MANAGER) eGFR >60 mL/min/1.7 3 m2 JIAN MCINTOSH Comment: Interpretive Data Reference Interval Normal >/= 90 mL/min/1.73m2 Mildly decreased* 60 - 89 mL/min/1.73m2 Mildly to moderately decreased 45 - 59 mL/min/1.73m2 Moderately to severely decreased 30 - 44 mL/min/1.73m2 Severely decreased 15 - 29 mL/min/1.73m2 Kidney Failure < 15 mL/min/1.73m2 *Relative to young adult level If -[place] multiply value by 1.16. Estimated glomerular filtration [...] 2016. Blood specimen (specimen) 10/03/2019 2:07 PM BANK MANAGER 10/03/2019 2:27 PM BANK MANAGER us Teri Carrillo NP LAB BLOOD ORDERABLES Fin al Result JIAN MCINTOSH [id number] [facility] [place] [address] 904 * (ABNORMAL) Serum lipid panel (10/22/2015 9:35 AM BANK MANAGER) Cholesterol 151 0 - 200 mg/dl HISTORICAL [...] revised 2012. Serum 10/22/2015 9:3 5 AM BANK MANAGER José Bass LAB BLOOD ORDERABLES Final Resul t HISTORICAL RESULTS from Last 3 Months or Most Recently Relevant to Health Maintenance Insurance [employer] MEDICARE MEDICARE [facility] Address: [address] [place] [id number] [facility] INS CO [facility] MEDICARE ADVANTAGE [facility] MEDICARE Address: [address] [address] [place] [address] [facility] Address: [address] [place] [address] Advance Directives For more information, please contact: [phone] * Full Code (Latest Code Status on File) Date Activated Date Inactivated Comments 10/18/2019 1:26 PM 10/19/2019 7:21 PM Care Teams Fiber Technologist Relationship Specialty Start Date End Date Sajan Velasquez MD [address] [place] [id number] PCP - General Family Medicine 07/23/23
== END 2025-05-11 14:15 | disposition home or self-care (01) ==
PROVIDERS: Emergency Provider Emergency Medicine; PCP Physician Assistant Medical
DX: S01.01XA Laceration without foreign body of scalp, initial encounter (principal); F03.90 Unspecified dementia, unspecified severity, without behavioral disturbance, psychotic disturbance, mood disturbance, and anxiety; I12.9 Hypertensive chronic kidney disease with stage 1 through stage 4 chronic kidney disease, or unspecified chronic kidney disease; E11.22 Type 2 diabetes mellitus with diabetic chronic kidney disease; N18.2 Chronic kidney disease, stage 2 (mild); E78.5 Hyperlipidemia, unspecified; E55.9 Vitamin D deficiency, unspecified; E50.9 Vitamin A deficiency, unspecified; M19.90 Unspecified osteoarthritis, unspecified site; Z96.643 Presence of artificial hip joint, bilateral; Z98.1 Arthrodesis status; Z87.891 Personal history of nicotine dependence; Z79.82 Long term (current) use of aspirin; Z79.899 Other long term (current) drug therapy; Z79.84 Long term (current) use of oral hypoglycemic drugs; W18.39XA Other fall on same level, initial encounter
CPT/HCPCS: 12001; 70450; 72125; 99284